=== PATIENT | male | born 1950 ===

== ENCOUNTER 2016-10-02 13:26 | Inpatient (IN) | payer MEDICAID ==
[2016-10-02 13:38] VITALS: BMI 32.1
[2016-10-02] MEDS ORDERED: Aspirin 325 mg EC Tablets PO STA (13:53)
--- NOTE | 2016-10-02 14:11 | C.PDOC ---
History Of Present Illness Patient is a 66 y/o male that presents to the emergency department for evaluation of worsening of chest pain, and shortness of breath. Patient states he is scheduled for echocardiogram and nuclear [place] [facility] Patient states that he was seen by PMD when his symptoms began, and states symptoms have been gradually worsening since September 23. Notes that pain is worse with exertion, and is short of breath when laying down as well. Denies chest pain in supine position. Otherwise, denies any palpitations, cough, abdominal pain, headache, fever, or any other associated symptoms at this time. Time Seen by Provider: 10/02/16 13:46 Chief Complaint (Nursing): Chest Pain History Per: Patient History/Exam Limitations: no limitations Onset/Duration Of Symptoms: Days Current Symptoms Are (Timing): Still Present Quality: "Pain" Associated Symptoms: denies: Nausea, Dyspnea, Diaphoresis, Syncope Modifying Factors: None Exacerbating Factors: Exertion Recent travel outside of the [place]: No Additional History Per: Patient Past Medical History Reviewed: Historical Data, Nursing Documentation, Vital Signs Vital Signs: Last Vital Signs Temp 96.6 F L 10/02/16 13:49 Pulse 79 10/02/16 13:49 Resp 17 10/02/16 13:49 BP 176/89 H 10/02/16 13:49 Pulse Ox 96 10/02/16 14:54 - Medical History PMH: Cardia Arrhythmia, Diabetes, HTN, Hypercholesterolemia Family History: States: Unknown Family Hx - Social History Hx Tobacco Use: No Hx Alcohol Use: Yes Hx Substance Use: No - Immunization History Hx Tetanus Toxoid Vaccination: No Hx Influenza Vaccination: Yes Hx Pneumococcal Vaccination: (not sure) Review Of Systems Except As Marked, All Systems Reviewed And Found Negative. Constitutional: Negative for: Fever, Chills Cardiovascular: Positive for: Chest Pain. Negative for: Palpitations, Edema, Light Headedness Respiratory: Positive for: Shortness of Breath. Negative for: Cough, Hemoptysis , Sputum, Wheezing Gastrointestinal: Negative for: Nausea, Vomiting, Abdominal Pain Neurological: Negative for: Weakness, Numbness, Headache, Dizziness Physical Exam - Physical Exam Appears: Non-toxic, No Acute Distress Skin: Normal Color, Warm, Dry Head: Atraumatic, Normacephalic Eye(s): bilateral: Normal Inspection, EOMI Neck: Normal ROM, Supple Chest: Symmetrical, No Tenderness Cardiovascular: Rhythm Regular, No Murmur Respiratory: Normal Breath Sounds, No Rales, No Rhonchi, No Wheezing Gastrointestinal/Abdominal: Soft, No Tenderness Extremity: Normal ROM, No Pedal Edema, Capillary Refill (< 2 sec.), No Swelling Neurological/Psych: Oriented x3, Normal Speech, Normal Cognition ED Course And Treatment - Laboratory Results Result Diagrams: 10/02/16 14:10 10/02/16 14:10 Lab Interpretation: Abnormal (BNP 2940, Troponin normal) ECG: Interpreted By Me, Viewed By Me ECG Rhythm: Sinus Rhythm ECG Interpretation: No Acute Changes Interpretation Of ECG: LVH. Non-specific T wave changes, flattening laterally. Rate From EC (bpm) O2 Sat by Pulse Oximetry: 96 (on RA) Pulse Ox Interpretation: Normal - Radiology CXR: Interpreted by Me CXR Interpretation: Yes: Cardiomegaly, Other (CHF with left pleural effusion) Progress Note: Labs, EKG, CXR ordered and reviewed. Pt was given Aspirin in the ER. Reevaluation Time: 14:52 Reassessment Condition: Unchanged - Physician Consult Information Time Consulting Physician Contacted: 14:52 Physician Contacted: Rogerio Mercedes Jr. Outcome Of Conversation: Patient accepted for admission. Disposition - Disposition Disposition: HOSPITALIZED Disposition Time: 15:40 Condition: STABLE - POA Present On Arrival: None - Clinical Impression Clinical Impression: Congestive heart failure, Unstable angina - Scribe Statement The provider has reviewed the documentation as recorded by the Liss Person Provider Attestation: All medical record entries made by the Liss were at my direction and personally dictated by me. I have reviewed the chart and agree that the record accurately reflects my personal performance of the history, physical exam, medical decision making, and the department course for this patient. I have also personally directed, reviewed, and agree with the discharge instructions and disposition.
[2016-10-02 14:18] LABS: BASO # 0.1 K/uL (0.0-0.2); BASO % 1.1 % (0.0-2.0); EOS # 0.5 K/uL (0.0-0.7); EOS % 7.5 % (0.0-4.0); HEMATOCRIT 43.1 % (35.0-51.0); LYMPH # 1.7 K/uL (1.0-4.3); LYMPH % 24.9 % (20.0-40.0); MEAN CELL VOLUME 75.2 fL (80.0-94.0); MEAN CORPUSCULAR HEMOGLOBIN 23.9 pg (27.0-31.0); MEAN CORPUSCULAR HGB CONC 31.8 g/dL (33.0-37.0); MEAN PLATELET VOLUME 7.9 fL (7.2-11.7); MONO # 0.5 K/uL (0.0-0.8); MONO % 7.2 % (0.0-10.0); NRBC % 0.1 % (0.0-2.0); RED CELL DISTRIBUTION WIDTH 14.5 % (11.5-14.5); WHITE BLOOD COUNT 6.9 K/uL (4.8-10.8)
[2016-10-02 14:25] LABS: CHLORIDE 99 mmol/L (98-107)
[2016-10-02 14:26] LABS: SODIUM 138 mmol/L (132-148)
[2016-10-02 14:28] LABS: BILIRUBIN,TOTAL 0.7 mg/dL (0.2-1.3); CARBON DIOXIDE 27 mmol/L (22-30); GFR AFRICAN-AMERICAN > 60
[2016-10-02 14:29] LABS: ALB/GLOB RATIO 1.4 (1.0-2.1); ALKALINE PHOSPHATASE 64 U/L (38-126); ALT/SGPT 23 U/L (21-72); AST/SGOT 26 U/L (17-59); BLOOD UREA NITROGEN 21 mg/dL (9-20); CALCIUM 8.8 mg/dl (8.6-10.4); GLUCOSE,RANDOM 211 mg/dL (75-110); TOTAL PROTEIN 6.4 g/dL (6.3-8.3)
--- NOTE | 2016-10-02 15:44 | CP.PCM.HP ---
History of Present Illness - History of Present Illness History of Present Illness: Medicine Note for Dr. Mercedes CC: SOB HPI: 66M with PMHx HTN, DM, HLD, and CHF presents to the ED for SOB x 2 days. Patient reports he normally sleeps on two pillows but the past two nights he has had to sleep sitting up. He reports feeling fatigued when ambulating. Patient has followed up with a Dovet[employer] Dr. Lin, who gave him a prescription for ECHO and Nuclear Stress test. Patient also have right sided flank pain for the past month. The pain is sharp in nature and intermediate. Denied any associated fevers, abdominal or pelvicm pain, hematuria, or dysuria. Patient currently denies any chest pain, but has some SOB and chest tightness intermittently. Denied fever, chills, headache, chest pain, abdominal pain, n/v/ d/c, or urinary symptoms. PMHx: HTN, DM, HLD, and CHF PSHx: Right renal stone removal Meds: As per JUN All: NKDA SHx: Denied tobacco or illicit drug use. Admitted to socially drinking 1-2 beers on special occasions FHx: Unremarkable Present on Admission - Present on Admission Any Indicators Present on Admission: No Past Patient History - Past Social History Smoking Status: Never Smoked - CARDIAC Hx Cardia Arrhythmia: Yes Hx Hypercholesterolemia: Yes Hx Hypertension: Yes - ENDOCRINE/METABOLIC Hx Diabetes Mellitus Type 2: Yes - PSYCHIATRIC Hx Substance Use: No - SURGICAL HISTORY Hx Surgeries: Yes Other/Comment: kidney stone with surgery - ANESTHESIA Hx Anesthesia: Yes Hx Anesthesia Reactions: No Hx Malignant Hyperthermia: No Meds Allergies/Adverse Reactions: Allergies Allergy/AdvReac Type Severity Reaction Status Date / Time No Known Allergies Allergy Verified 10/02/16 13:52 Physical Exam - Constitutional Appears: No Acute Distress - Head Exam Head Exam: NORMAL INSPECTION, NORMOCEPHALIC - Eye Exam Eye Exam: Normal appearance - ENT Exam ENT Exam: Mucous Membranes Moist - Neck Exam Additional comments: NO JVD - Respiratory Exam Respiratory Exam: Rales - Cardiovascular Exam Cardiovascular Exam: REGULAR RHYTHM, RRR, +S1, +S2 Additional comments: No S3 appreciated - GI/Abdominal Exam GI & Abdominal Exam: Normal Bowel Sounds, Soft. absent: Distended, Tenderness - Extremities Exam Extremities exam: Positive for: normal inspection, pedal pulses present. Negative for: pedal edema, tenderness - Back Exam Back exam: CVA tenderness (R) - Neurological Exam Neurological exam: Alert, Oriented x3 - Skin Skin Exam: Dry, Intact, Normal Color, Warm Results - Vital Signs Recent Vital Signs: Last Vital Signs Temp 96.6 F L 10/02/16 13:49 Pulse 79 10/02/16 13:49 Resp 17 10/02/16 13:49 BP 176/89 H 10/02/16 13:49 Pulse Ox 96 10/02/16 15:41 - Labs Result Diagrams: 10/02/16 14:10 10/02/16 14:10 Labs: Laboratory Results - last 24 hr 10/02/16 10/02/16 14:10 14:10 WBC 6.9 RBC 5.73 Hgb 13.7 Hct 43.1 MCV 75.2 L MCH 23.9 L MCHC 31.8 L RDW 14.5 Plt Count 277 MPV 7.9 Neut % (Auto) 59.3 Lymph % (Auto) 24.9 Knox % (Auto) 7.2 Eos % (Auto) 7.5 H Baso % (Auto) 1.1 Neut # 4.1 Lymph # 1.7 Knox # 0.5 Eos # 0.5 Baso # 0.1 Sodium 138 Potassium 4.0 Chloride 99 Carbon Dioxide 27 Anion Gap 15 BUN 21 H Creatinine 0.8 Est GFR ( Amer) > 60 Est GFR (Non-Af Amer) > 60 Random Glucose 211 H Calcium 8.8 Total Bilirubin 0.7 AST 26 ALT 23 Alkaline Phosphatase 64 Troponin I 0.0260 NT-Pro-B Natriuret Pep 2940 H Total Protein 6.4 Albumin 3.7 Globulin 2.7 Albumin/Globulin Ratio 1.4 Assessment & Plan - Assessment and Plan (Free Text) Assessment: 66M with PMHx HTN, DM, HLD, and CHF presents to the ED for SOB x 2 days. Plan: CHF Exacerbation * Rales audible on physical exam * BNP 2940 * CXR: Cardiomegaly, left pleural effusion --> pending official read * Initial AMY: negative, follow up AMY x2 * EKG: NSR @ 76 BPM. LVH. Non-specific T wave changes, flattening laterally. * F/U ECHO Right Flank Pain * + CVA right * Hx of renal stones * F/U UA * CT AB&P without contrast --> pending results HTN * Restarted home medications: Norvasc 5mg PO daily, Cozaar 50mg PO daily ( patient takes a combo pill losartan/norvasc not on formulary), Metoprolol XL 50mg PO daily * Monitor DM * Accuchecks * ISS-medium * F/U HgA1C Hx HLD * Crestor 10mg PO QHS * F/U lipid panel Prophylactic Measures * GI PPX: Protonix 40mg PO daily * DVT PPX: Heparin 5000u SC Q12, SCDs * Heart Healthy Diet w/ fluid restriction * Daily Weights DW Dr. Mercedes, Pepper HUTCHINS, PGY-1
[2016-10-02 17:01] VITALS: RESP 20
[2016-10-02 17:05] LABS: RBC URINE 2 /hpf (0-3); URINE BILIRUBIN NEGATIVE (NEGATIVE); URINE BLOOD NEGATIVE (NEGATIVE); URINE COLOR Straw (YELLOW); URINE GLUCOSE (UA) NORMAL (Normal); URINE KETONE NEGATIVE (NEGATIVE); URINE LEUKOCYTE ESTERASE NEG Leu/uL (Negative); URINE PROTEIN 2+ mg/dL (NEGATIVE); URINE UROBILINOGEN NORMAL mg/dL (0.2-1.0); WBC URINE < 1 /hpf (0-5)
[2016-10-02] MEDS: (Novolin R) Insulin Human Regular 100 units/ml vial SC SCH ×2 (17:30→22:25)
--- NOTE | 2016-10-02 18:10 | CT ---
EXAM: CT Abdomen and Pelvis Without Intravenous Contrast CLINICAL HISTORY: 66 years old, male; Pain; Abdominal pain; Generalized; Additional info: Right flank pain, HX of renal stones TECHNIQUE: Axial computed tomography images of the abdomen and pelvis without intravenous contrast. This CT exam was performed using one or more of the following dose reduction techniques: automated exposure control, adjustment of the mA and/or kV according to patient size, and/or use of iterative reconstruction technique. Coronal and sagittal reformatted images were created and reviewed. EXAM DATE/TIME: 10/02/2016 4:19 PM COMPARISON: No relevant prior studies available. FINDINGS: LOWER THORAX: Bilateral pleural effusions, small to moderate on the right and small on the left. Findings suspicious for mild pulmonary vascular congestion-there is bilateral smooth interlobular septal thickening. Indeterminate 16 x 7 mm nodular density in the right lung base. Recommend follow-up CT at around 3, 9 and 24 months, dynamic contrast-enhanced CT, PET, and/or biopsy for patients with low or high risk of malignancy. ABDOMEN: LIVER: No acute abnormality of the liver identified. GALLBLADDER AND BILE DUCTS: No CT evidence of acute cholecystitis. No evidence of significant biliary ductal dilatation. PANCREAS: No CT evidence of acute pancreatitis. SPLEEN: No acute abnormality of the spleen identified. ADRENALS: No acute abnormality of the adrenal glands identified. KIDNEYS AND URETERS: Large, staghorn type calculus in the right kidney, located in the lower pole collecting system, measuring up to 2.3 cm in size. This does not appear to be causing significant obstruction. Multiple additional nonobstructing stones in the lower pole of the right kidney. Scarring involving the lower pole of right kidney. No obstructing ureteral stones seen. No evidence of hydroureteronephrosis. STOMACH AND BOWEL: No acute abnormality of the stomach or duodenum identified. No evidence of small bowel obstruction. No acute abnormality of the colon identified. APPENDIX: Appendix is seen, and is within normal limits in appearance. PELVIS: BLADDER: No acute abnormality of the bladder identified. REPRODUCTIVE: No acute abnormality of the reproductive organs is seen. ABDOMEN and PELVIS: INTRAPERITONEAL SPACE: No evidence of free intraperitoneal air or fluid. BONES/JOINTS: No acute fractures or other acute bony abnormality noted. SOFT TISSUES: No acute abnormality of the visualized soft tissues is seen. VASCULATURE: Atherosclerotic calcification. No evidence of abdominal aortic aneurysm. LYMPH NODES: No evidence of diffuse lymphadenopathy. IMPRESSION: - Bilateral pleural effusions, larger on the right, and findings suspicious for mild pulmonary vascular congestion. The - Otherwise, no evidence of significant acute process on this unenhanced exam. - Large staghorn type calculus in the lower pole the right kidney. No evidence of obstructive nephrolithiasis. - Indeterminate 16 x 7 mm nodular density in the right lung base. See recommendations above. - See above for remaining findings.
--- NOTE | 2016-10-02 18:44 | RAD ---
PROCEDURE: CHEST RADIOGRAPH, 1 VIEW HISTORY: chest pain COMPARISON: None available. FINDINGS: LUNGS: Poor inspiration with low lung volumes, crowded bronchovascular markings and mild bibasilar atelectasis and or infiltrates. Questionable small bilateral effusions left larger than right PLEURA: No pneumothorax or pleural fluid seen. CARDIOVASCULAR: Heart appears enlarged OSSEOUS STRUCTURES: Degenerative changes both shoulder girdles. . VISUALIZED UPPER ABDOMEN: Normal. OTHER FINDINGS: None. IMPRESSION: Poor inspiration with low lung volumes, crowded bronchovascular markings and mild bibasilar atelectasis and or infiltrates. Questionable small bilateral effusions left larger than right
[2016-10-03] MEDS: (Novolin R) Insulin Human Regular 100 units/ml vial SC SCH ×2 (07:30→12:00)
[2016-10-03 07:59] LABS: ALB/GLOB RATIO 1.2 (1.0-2.1); ALKALINE PHOSPHATASE 71 U/L (38-126); ALT/SGPT 27 U/L (21-72); AST/SGOT 17 U/L (17-59); BILIRUBIN,TOTAL 0.8 mg/dL (0.2-1.3); BLOOD UREA NITROGEN 26 mg/dL (9-20); CALCIUM 8.6 mg/dl (8.6-10.4); CARBON DIOXIDE 29 mmol/L (22-30); CHLORIDE 100 mmol/L (98-107); CHOLESTEROL 156 mg/dL (0-199); GFR AFRICAN-AMERICAN > 60; GLUCOSE,RANDOM 146 mg/dL (75-110); MAGNESIUM 1.9 mg/dL (1.6-2.3); POTASSIUM 4.1 mmol/L (3.6-5.2); SODIUM 138 mmol/L (132-148); TOTAL PROTEIN 6.4 g/dL (6.3-8.3)
[2016-10-03 08:03] LABS: BASO % 0.7 % (0.0-2.0); EOS # 0.6 K/uL (0.0-0.7); EOS % 10.2 % (0.0-4.0); HEMATOCRIT 44.4 % (35.0-51.0); MEAN CELL VOLUME 74.6 fL (80.0-94.0); MEAN CORPUSCULAR HEMOGLOBIN 23.6 pg (27.0-31.0); MEAN CORPUSCULAR HGB CONC 31.7 g/dL (33.0-37.0); MEAN PLATELET VOLUME 8.4 fL (7.2-11.7); MONO # 0.6 K/uL (0.0-0.8); MONO % 8.7 % (0.0-10.0); RED CELL DISTRIBUTION WIDTH 14.6 % (11.5-14.5); WHITE BLOOD COUNT 6.4 K/uL (4.8-10.8)
--- NOTE | 2016-10-03 08:05 | CP.PCM.PN ---
Subjective - Date & Time of Evaluation Date of Evaluation: 10/03/16 Time of Evaluation: 07:00 - Subjective Subjective: Medicine Note for Dr. Mercedes, Patient was seen and examined at bedside. Reports his breathing has improved since admission. Continues to have right sided flank pain, pain relieved with medications. Ambulating and tolerating diet well. Denied fever, chills, headache , chest pain, SOB, abdominal pain, n/v/d/c, or urinary symptoms. Objective - Vital Signs/Intake and Output Vital Signs (last 24 hours): Temp Pulse Resp BP Pulse Ox 97.8 F 79 20 180/89 H 95 10/03/16 05:03 10/03/16 05:03 10/03/16 05:03 10/03/16 05:03 10/03/16 05:03 - Medications Medications: Current Medications Acetaminophen (Tylenol 325mg Tab) 650 mg PO Q6 PRN PRN Reason: Pain, Mild (1-3) Amlodipine Besylate (Norvasc) 5 mg PO DAILY [facility] Aspirin (Aspirin Chewable) 81 mg PO DAILY [facility] Furosemide (Lasix) 40 mg IVP BID [facility] Heparin Sodium (Porcine) (Heparin) 5,000 units SC Q12 [facility] Last Admin: 10/02/16 22:25 Dose: 5,000 units Insulin Human Regular (Novolin R) 0 unit SC ACHS RAVI PRN Reason: Protocol Last Admin: 10/02/16 22:25 Dose: Not Given Ketorolac Tromethamine (Toradol) 30 mg IVP Q6 PRN PRN Reason: Pain, moderate (4-7) Losartan Potassium (Cozaar) 50 mg PO DAILY [facility] Metoprolol Succinate (Toprol Xl) 50 mg PO DAILY [facility] Pantoprazole Sodium (Protonix Ec Tab) 40 mg PO DAILY [facility] Rosuvastatin Calcium (Crestor) 10 mg PO HS [facility] Last Admin: 10/02/16 22:24 Dose: 10 mg - Labs Labs: 10/03/16 07:26 - Constitutional Appears: No Acute Distress - Head Exam Head Exam: NORMAL INSPECTION, NORMOCEPHALIC - Respiratory Exam Respiratory Exam: Rales - Cardiovascular Exam Cardiovascular Exam: REGULAR RHYTHM, RRR, +S1, +S2 - GI/Abdominal Exam GI & Abdominal Exam: Soft, Normal Bowel Sounds. absent: Distended, Tenderness - Back Exam Back Exam: CVA tenderness (R) - Neurological Exam Neurological Exam: Alert, Awake, Oriented x3 - Skin Skin Exam: Dry, Intact, Normal Color, Warm Assessment and Plan - Assessment and Plan (Free Text) Assessment: 66M with PMHx HTN, DM, HLD, and CHF presents to the ED for SOB x 2 days. Plan: CHF Exacerbation * Rales audible on physical exam * BNP 2940 * CXR: Cardiomegaly, left pleural effusion --> pending official read * Initial AMY: negative, 2nd AMY negative, 3rd AMY - * EKG: NSR @ 76 BPM. LVH. Non-specific T wave changes, flattening laterally. * F/U ECHO Right Flank Pain * + CVA right * Hx of renal stones * UA - +2 protein * CT AB&P 10/02/16: - Bilateral pleural effusions, larger on the right, and findings suspicious for mild pulmonary vascular congestion. Large, staghorn type calculus in the right kidney, located in the lower pole collecting system , measuring up to 2.3 cm in size. This does not appear to be causing significant obstruction. Multiple additional nonobstructing stones in the lower pole of the right kidney. Scarring involving the lower pole of right kidney. No obstructing ureteral stones seen. No evidence of hydroureteronephrosis. Incidental Lung Nodule on CT Scan * CT AB&P 10/02/16: Indeterminate 16 x 7 mm nodular density in the right lung base. Recommend follow-up CT at around 3, 9 and 24 months, dynamic contrast- enhanced CT, PET, and/or biopsy for patients with low or high risk of malignancy. HTN * Restarted home medications: Norvasc 5mg PO daily, Cozaar 50mg PO daily ( patient takes a combo pill losartan/norvasc not on formulary), Metoprolol XL 50mg PO daily * Monitor DM * Accuchecks * ISS-medium * HgA1C: 8.0 Hx HLD * Crestor 10mg PO QHS * F/U lipid panel Prophylactic Measures * GI PPX: Protonix 40mg PO daily * DVT PPX: Heparin 5000u SC Q12, SCDs * Heart Healthy Diet w/ fluid restriction * Daily Weights * Strict Ix & Os DW Pepper Riggs DO, PGY-1
[2016-10-03] MEDS ORDERED: Metoprolol Succinate 50 mg XL Tab PO SCH (10:00)
[2016-10-03] MEDS ORDERED: Pantoprazole 40 mg EC Tab PO SCH (10:00)
--- NOTE | 2016-10-03 13:24 | CP.PCM.DIS ---
Provider - Provider Date of Admission: 10/02/16 15:41 Attending physician: Rogerio Mercedes Jr, MD Time Spent in preparation of Discharge (in minutes): 35 Hospital Course - Lab Results Lab Results: Most Recent Lab Values WBC 6.4 K/uL (4.8-10.8) 10/03/16 07:26 RBC 5.95 Mil/uL (4.40-5.90) H 10/03/16 07:26 Hgb 14.1 g/dL (12.0-18.0) 10/03/16 07:26 Hct 44.4 % (35.0-51.0) 10/03/16 07:26 MCV 74.6 fL (80.0-94.0) L 10/03/16 07:26 MCH 23.6 pg (27.0-31.0) L 10/03/16 07:26 MCHC 31.7 g/dL (33.0-37.0) L 10/03/16 07:26 RDW 14.6 % (11.5-14.5) H 10/03/16 07:26 Plt Count 287 K/uL (130-400) 10/03/16 07:26 MPV 8.4 fL (7.2-11.7) 10/03/16 07:26 Neut % (Auto) 49.4 % (50.0-75.0) L 10/03/16 07:26 Lymph % (Auto) 31.0 % (20.0-40.0) 10/03/16 07:26 Lyman % (Auto) 8.7 % (0.0-10.0) 10/03/16 07:26 Eos % (Auto) 10.2 % (0.0-4.0) H 10/03/16 07:26 Baso % (Auto) 0.7 % (0.0-2.0) 10/03/16 07:26 Neut # 3.1 K/uL (1.8-7.0) 10/03/16 07:26 Lymph # 2.0 K/uL (1.0-4.3) 10/03/16 07:26 Lyman # 0.6 K/uL (0.0-0.8) 10/03/16 07:26 Eos # 0.6 K/uL (0.0-0.7) 10/03/16 07:26 Baso # 0.0 K/uL (0.0-0.2) 10/03/16 07:26 Sodium 138 mmol/L (132-148) 10/03/16 07:26 Potassium 4.1 mmol/L (3.6-5.2) 10/03/16 07:26 Chloride 100 mmol/L (98-107) 10/03/16 07:26 Carbon Dioxide 29 mmol/L (22-30) 10/03/16 07:26 Anion Gap 13 (10-20) 10/03/16 07:26 BUN 26 mg/dL (9-20) H 10/03/16 07:26 Creatinine 1.0 MG/DL (0.8-1.5) 10/03/16 07:26 Est GFR ( Amer) > 60 10/03/16 07:26 Est GFR (Non-Af Amer) > 60 10/03/16 07:26 POC Glucose (mg/dL) 169 mg/dL (65-110) H 10/03/16 11:28 Random Glucose 146 mg/dL (75-110) H 10/03/16 07:26 Hemoglobin A1c 8.0 % (4.2-6.5) H 10/02/16 16:17 Calcium 8.6 mg/dl (8.6-10.4) 10/03/16 07:26 Phosphorus 4.0 mg/dL (2.5-4.5) 10/03/16 07:26 Magnesium 1.9 mg/dL (1.6-2.3) 10/03/16 07:26 Total Bilirubin 0.8 mg/dL (0.2-1.3) 10/03/16 07:26 AST 17 U/L (17-59) D 10/03/16 07:26 ALT 27 U/L (21-72) 10/03/16 07:26 Alkaline Phosphatase 71 U/L (38-126) 10/03/16 07:26 Total Creatine Kinase 48 U/L (55-170) L 10/03/16 07:26 CK-MB (Mass) 1.15 ng/mL (0.0-3.38) 10/03/16 07:26 Troponin I 0.0260 ng/mL (0.00-0.120) 10/02/16 14:10 Troponin I, Quant 0.0290 ng/mL (0.00-0.120) 10/03/16 07:26 NT-Pro-B Natriuret Pep 2940 pg/mL (0-900) H 10/02/16 14:10 Total Protein 6.4 g/dL (6.3-8.3) 10/03/16 07:26 Albumin 3.5 g/dL (3.5-5.0) 10/03/16 07:26 Globulin 2.9 gm/dL (2.2-3.9) 10/03/16 07:26 Albumin/Globulin Ratio 1.2 (1.0-2.1) 10/03/16 07:26 Triglycerides 129 mg/dL (0-149) D 10/03/16 07:26 Cholesterol 156 mg/dL (0-199) 10/03/16 07:26 LDL Cholesterol Direct 91 mg/dL (0-129) 10/03/16 07:26 HDL Cholesterol 35 mg/dL (30-70) 10/03/16 07:26 TSH 3rd Generation 1.03 mIU/L (0.46-4.68) 10/02/16 12:07 Urine Color Straw (YELLOW) 10/02/16 16:59 Urine Clarity Clear (Clear) 10/02/16 16:59 Urine pH 7.0 (5.0-8.0) 10/02/16 16:59 Ur Specific [place] 1.010 (1.003-1.030) 10/02/16 16:59 Urine Protein 2+ mg/dL (NEGATIVE) H 10/02/16 16:59 Urine Glucose (UA) Normal mg/dL (Normal) 10/02/16 16:59 Urine Ketones Negative mg/dL (NEGATIVE) 10/02/16 16:59 Urine Blood Negative (NEGATIVE) 10/02/16 16:59 Urine Nitrate Negative (NEGATIVE) 10/02/16 16:59 Urine Bilirubin Negative (NEGATIVE) 10/02/16 16:59 Urine Urobilinogen Normal mg/dL (0.2-1.0) 10/02/16 16:59 Ur Leukocyte Esterase Neg Delgado/uL (Negative) 10/02/16 16:59 Urine WBC (Auto) < 1 /hpf (0-5) 10/02/16 16:59 Urine RBC (Auto) 2 /hpf (0-3) 10/02/16 16:59 Ur Squamous Epith Cells < 1 /hpf (0-5) 10/02/16 16:59 - Hospital Course Hospital Course: Upon Admission: CC: SOB HPI: 66M with PMHx HTN, DM, HLD, and CHF presents to the ED for SOB x 2 days. Patient reports he normally sleeps on two pillows but the past two nights he has had to sleep sitting up. He reports feeling fatigued when ambulating. Patient has followed up with a Bl[employer] Contract [employer]er Dr. Lin, who gave him a prescription for ECHO and Nuclear Stress test. Patient also have right sided flank pain for the past month. The pain is sharp in nature and intermediate. Denied any associated fevers, abdominal or pelvicm pain, hematuria, or dysuria. Patient currently denies any chest pain, but has some SOB and chest tightness intermittently. Denied fever, chills, headache, chest pain, abdominal pain, n/v/ d/c, or urinary symptoms. PMHx: HTN, DM, HLD, and CHF PSHx: Right renal stone removal Meds: As per JUN All: NKDA SHx: Denied tobacco or illicit drug use. Admitted to socially drinking 1-2 beers on special occasions FHx: Unremarkable Throughout Hospital Course: Patient was admitted for new onset CHF. Patient was started on Lasix to diuresis the patient. CXR: Cardiomegaly, left pleural effusion, AMY x 3 negative, EKG: NSR @ 76 BPM. LVH. Non-specific T wave changes, flattening laterally. Patient was resumed on home medications for HTN, DM, and HLD. Patient also had right sided flank pain, CT AB&P 10/02/16: - Bilateral pleural effusions, larger on the right, and findings suspicious for mild pulmonary vascular congestion. Large, staghorn type calculus in the right kidney, located in the lower pole collecting system, measuring up to 2.3 cm in size. This does not appear to be causing significant obstruction. Multiple additional nonobstructing stones in the lower pole of the right kidney. Scarring involving the lower pole of right kidney. No obstructing ureteral stones seen. No evidence of hydroureteronephrosis. Indeterminate 16 x 7 mm nodular density in the right lung base. Recommend follow-up CT at around 3, 9 and 24 months, dynamic contrast-enhanced CT, PET, and/or biopsy for patients with low or high risk of malignancy. This is a brief summary of the patient's hospital course, please refer to EMR for full record. Discharge Exam - Head Exam Head Exam: NORMAL INSPECTION, NORMOCEPHALIC - Eye Exam Eye Exam: Normal appearance - ENT Exam ENT Exam: Mucous Membranes Moist - Respiratory Exam Respiratory Exam: Clear to PA & Lateral, NORMAL BREATHING PATTERN. absent: Rales, Wheezes - GI/Abdominal Exam GI & Abdominal Exam: Normal Bowel Sounds, Soft. absent: Distended, Tenderness - Extremities Exam Extremities exam: normal inspection, pedal pulses present - Neurological Exam Neurological exam: Alert, Oriented x3 - Skin Skin Exam: Dry, Intact, Normal Color, Warm Discharge Plan - Discharge Medications Prescriptions: amLODIPine [Norvasc] 5 mg PO DAILY #30 tab Furosemide [Lasix] 40 mg PO DAILY #30 tablet Lisinopril [Zestril] 10 mg PO DAILY #30 tab - Follow Up Plan Condition: STABLE Disposition: HOME/ ROUTINE Additional Instructions: Patient is to take the following medications daily: Aspirin 81mg by mouth daily furosemide (lasix) 40mg by mouth daily amlodipine 5mg by mouth daily lisinopril 10mg by mouth daily Metoprolol XL 50mg by mouth daily Metformin 1000mg by mouth twice a day Glimepiride 4mg by mouth daily Pravachol 20mg by mouth daily Patient is to follow up with his eligibility analyst Dr. Lin. He was given a prescription for ECHO and Nuclear Stress Test, he should have those 2 examinations done. Patient is to also have a repeat CT scan of his chest in 3 months for a lung nodule that was incidentally found on CT scan during this hospital course. Patient is to follow up with a Urologist, to evaluate him for his staghorn calculi in his right kidney. Patient instructed to follow up with his PMD within 1 week. Patient encouraged to return to the ED if his symptoms worsen or return. El paciente debe elva los siguientes medicamentos diariamente: Aspirina 81mg por va oral todos los thomas Furosemida (lasix) 40mg por va oral todos los thomas Amlodipine 5mg por va oral todos los thomas Lisinopril 10 mg por va oral todos los thomas Metoprolol XL 50mg por va oral todos los thomas Metformina 1000mg por va oral dos veces al da Glimepiride 4mg por va oral todos los thomas Pravachol 20mg por va oral todos los thomas El paciente debe seguir con tatum cardilogo Dr. Lin. Se le mehdi chris receta para ECHO y Prueba de Estrs Nuclear, l debe tener esos 2 exmenes hechos. Paciente es tambin tener chris repeticin de la TC de tatum pecho en 3 meses para un ndulo pulmonar que se encontr incidentalmente en la TC shruthi oren [facility] hospital. El paciente debe hacer un seguimiento con un urlogo, para evaluarlo por fernando c lculos de staghorn en tatum rin derecho. Paciente instruido a seguir con tatum PMD dentro de 1 semana. El paciente es alentado a regresar a la DE si fernando sntomas empeoran o regresan. Referrals: Mary Rodríguez MD [Staff Provider] -
[2016-10-03 15:56] VITALS: BP 168/81; PULSE 70; TEMP 97.8; O2SAT 95
--- NOTE | 2016-10-04 13:11 | CARD ---
APPROVED REPORT EKG Measurement Heart [id number] <Conclusion> Normal sinus rhythm Minimal voltage criteria for LVH, may be normal variant Nonspecific T wave abnormality Abnormal ECG
--- NOTE | 2016-10-05 11:07 | PCM.HF ---
Heart Failure Core Measure - Heart Failure Left Ventricular Function to be assessed after discharge: Yes KRYSTYNA Inhibitor Prescribed: Yes Beta-Jelena Prescribed: Metoprolol Succinate Angiotensin II Receptor Jelena Prescribed: No Contraindication/Reason for not providing: KRYSTYNA- I prescribed AnticoagulationTherapy for Atrial Fibrillation/Atrialflutter: No Contraindication/Reason for not providing: No hx of A-fib Aldosterone Antagonist Prescribed: No Contraindication/Reason for not providing: Pt on Lasix Hydralazine Nitrate Prescribed: No Contraindication/Reason for not providing: n/a Implantable Cardioverter Defibrillator Therapy: No Contraindication/Reason for not providing: n/a Cardiac Resynchronization Therapy Prescribed: No Contraindication/Reason for not providing: n/a - Follow up Will be discharged to: Home Follow Up Date (must be within 7 days from discharge): 10/12/16 (Patient is to follow up with his ebd teacher. ECHO and nuclear stress test to be performed as outpatient. ) Follow Up Time: 09:00
== END 2016-10-03 15:30 | disposition home or self-care (01) | DRG 127 ==
LOC: C.ER 13:26 → C.9E 15:41 → C.6T 16:37
PROVIDERS: ADMIT Internal Medicine; ATTEND Internal Medicine
DX: I11.0 Hypertensive heart disease with heart failure (principal); I20.0 Unstable angina; E11.9 Type 2 diabetes mellitus without complications; I50.9 Heart failure, unspecified; E78.00 Pure hypercholesterolemia, unspecified; E78.5 Hyperlipidemia, unspecified; N20.0 Calculus of kidney; Z87.442 Personal history of urinary calculi; R91.1 Solitary pulmonary nodule

== ENCOUNTER 2017-09-11 06:28 | Inpatient (IN) | payer MEDICAID ==
[2017-09-11 06:29] VITALS: BMI 32.1
--- NOTE | 2017-09-11 06:51 | C.PDOC ---
History Of Present Illness 67 year old male presents to the ER with a complaint of SOB for the past 4-5 days that worsens with walking up stairs. Denies chest pain or fever. Chief Complaint (Nursing): Shortness Of Breath History Per: Patient History/Exam Limitations: no limitations Onset/Duration Of Symptoms: Days Current Symptoms Are (Timing): Still Present Initiating Event: Other (Not known) Exacerbating Factor(s): Exertion Current Respiratory Medications: None Associated Symptoms: Other (SOB, SOB when walking up stairs). denies: Fever, Chest Pain Recent travel outside of the [place]: No Past Medical History Reviewed: Historical Data, Nursing Documentation, Vital Signs Vital Signs: Last Vital Signs Temp 98.2 F 09/11/17 06:41 Pulse 68 09/11/17 06:41 Resp 19 09/11/17 06:41 BP 168/82 H 09/11/17 06:41 Pulse Ox 95 09/11/17 06:58 - Medical History PMH: Cardia Arrhythmia, Diabetes, HTN, Hypercholesterolemia Family History: States: Unknown Family Hx - Social History Hx Tobacco Use: No Hx Alcohol Use: Yes Hx Substance Use: No - Immunization History Hx Tetanus Toxoid Vaccination: No Hx Influenza Vaccination: Yes Hx Pneumococcal Vaccination: (not sure) Review Of Systems Constitutional: Negative for: Fever, Chills Cardiovascular: Negative for: Chest Pain Respiratory: Positive for: Shortness of Breath, SOB with Excertion Gastrointestinal: Negative for: Nausea, Vomiting Physical Exam - Physical Exam Appears: Non-toxic, No Acute Distress Skin: Normal Color, Warm, Dry Head: Atraumatic, Normacephalic Eye(s): bilateral: Normal Inspection Oral Mucosa: Moist Chest: Symmetrical, No Tenderness Cardiovascular: Rhythm Regular Respiratory: Rales (Bilateral lower), No Rhonchi, No Wheezing Gastrointestinal/Abdominal: Soft, No Tenderness Extremity: Pedal Edema Neurological/Psych: Oriented x3, Normal Speech ED Course And Treatment O2 Sat by Pulse Oximetry: 95 (Room air) Pulse Ox Interpretation: Normal Progress Note: EKG, blood work, and CXR ordered. Disposition - Disposition Referrals: Rachana Lin MD [Primary Care Provider] - Disposition Time: 06:57 Condition: STABLE Forms: RollCall (roll.to) (Slovak) - POA Present On Arrival: None - Clinical Impression Clinical Impression: Dyspnea, Congestive heart failure - Scribe Statement The provider has reviewed the documentation as recorded by the Scribe Trav Yost All medical record entries made by the Liss were at my direction and personally dictated by me. I have reviewed the chart and agree that the record accurately reflects my personal performance of the history, physical exam, medical decision making, and the department course for this patient. I have also personally directed, reviewed, and agree with the discharge instructions and disposition.
--- NOTE | 2017-09-11 06:55 | C.PDOC ---
Chief Complaint (Nursing): Shortness Of Breath Past Medical History Vital Signs: Last Vital Signs Temp 98.2 F 09/11/17 06:41 Pulse 68 09/11/17 06:41 Resp 19 09/11/17 06:41 BP 168/82 H 09/11/17 06:41 Pulse Ox 95 09/11/17 06:59 - Medical History PMH: Cardia Arrhythmia, Diabetes, HTN, Hypercholesterolemia Denies: Chronic Kidney Disease Family History: States: Unknown Family Hx - Social History Hx Tobacco Use: No Hx Alcohol Use: Yes Hx Substance Use: No - Immunization History Hx Tetanus Toxoid Vaccination: No Hx Influenza Vaccination: Yes Hx Pneumococcal Vaccination: (not sure) ED Course And Treatment ECG: Interpreted By Me, Viewed By Me ECG Rhythm: Sinus Rhythm ECG Interpretation: No Acute Changes Interpretation Of ECG: NSR, LVH by voltage criteria, ni acute changes. Rate From EC O2 Sat by Pulse Oximetry: 95 Pulse Ox Interpretation: Normal Disposition - Disposition Referrals: Rachana Lin MD [Primary Care Provider] - Disposition Time: 07:00 Condition: STABLE Forms: [employer] (Georgian) - Clinical Impression Clinical Impression: Dyspnea, Congestive heart failure
[2017-09-11 07:02] LABS: BASO # 0.1 K/uL (0.0-0.2); BASO % 0.8 % (0.0-2.0); EOS % 13.9 % (0.0-4.0); HEMOGLOBIN 14.1 g/dL (12.0-18.0); LYMPH # 1.9 K/uL (1.0-4.3); MEAN CELL VOLUME 73.7 fL (80.0-94.0); MEAN CORPUSCULAR HEMOGLOBIN 24.4 pg (27.0-31.0); MEAN CORPUSCULAR HGB CONC 33.1 g/dL (33.0-37.0); MEAN PLATELET VOLUME 7.7 fL (7.2-11.7); MONO # 0.6 K/uL (0.0-0.8); MONO % 8.6 % (0.0-10.0); NEUT # 3.4 K/uL (1.8-7.0); NEUT % 49.7 % (50.0-75.0); RBC 5.77 Mil/uL (4.40-5.90); RED CELL DISTRIBUTION WIDTH 15.5 % (11.5-14.5); WHITE BLOOD COUNT 6.9 K/uL (4.8-10.8)
[2017-09-11 07:15] LABS: ALB/GLOB RATIO 1.2 (1.0-2.1); ALBUMIN 3.6 g/dL (3.5-5.0); ALT/SGPT 13 U/L (21-72); AST/SGOT 21 U/L (17-59); BLOOD UREA NITROGEN 21 mg/dL (9-20); GFR AFRICAN-AMERICAN > 60; GFR NON-AFRICAN AMERICAN > 60
[2017-09-11 07:27] LABS: B-TYPE NATRIURETIC PEPTIDE 657 pg/mL (0-900)
[2017-09-11 07:37] LABS: D DIMER < 200 ng/mlDDU (0-243); PARTIAL THROMBOPLASTIN TIME 32 SECONDS (21-34); PROTHROMBIN TIME 10.6 SECONDS (9.7-12.2)
[2017-09-11] MEDS ORDERED: Glucagon Recombinant 1 mg Inj IM PRN (09:20)
[2017-09-11] MEDS ORDERED: Dextrose 50% SYRINGE Inj (50 ml) IV PRN (09:20)
[2017-09-11] MEDS ORDERED: Metoprolol Succinate 50 mg XL Tab PO SCH ×2 (10:00→11:12)
[2017-09-11] MEDS ORDERED: PRAVASTATIN SODIUM 20 MG PO SCH (10:00)
--- NOTE | 2017-09-11 10:13 | RAD ---
HISTORY: SOB COMPARISON: Portable chest 10/02/2016. TECHNIQUE: Chest PA and lateral FINDINGS: LUNGS: Cardiomegaly reiterated with mild pulmonary vascular congestion evident. Reticular markings appear somewhat increased and may reflect new CHF. PLEURA: No significant pleural effusion identified. No pneumothorax apparent. CARDIOVASCULAR: As above. OSSEOUS STRUCTURES: No significant abnormalities. VISUALIZED UPPER ABDOMEN: Normal. OTHER FINDINGS: None. IMPRESSION: Mild CHF suggested. No alveolitis.
[2017-09-11 10:14] LABS: HDL CHOLESTEROL 53 mg/dL (30-70)
[2017-09-11 10:24] LABS: LDL CHOLESTEROL 90 mg/dL (0-129)
[2017-09-11] MEDS ORDERED: Albuterol-Ipratrop 3 mg / 0.5 (3 ml) UD INH PRN (11:12)
[2017-09-11] MEDS ORDERED: (Novolin R) Insulin Human Regular 100 units/ml vial SC SCH (11:30)
--- NOTE | 2017-09-11 14:19 | CP.PCM.HP ---
<Alessio Lozano - Last Filed: 09/11/17 14:24> History of Present Illness - History of Present Illness History of Present Illness: This is a 67 yo male with past medical history of CHF, DM, HTN, HLD, presenting to ER with chief complaint of shortness of breath. Pt does not speak any austrian and is a poor historian. He is with his daughter who is able to provide some translation. Pt reports sob x 30 days, but says it started worsening over the past 1 night. Patient says it has never happened before although records indicate he was admitted for similar issue last year. Pt denies chest pain, palpitations, dizziness. Pt says the sob does not happen during exertion. It is only affecting him at rest. He takes several medications and is compliant with all of them. Pt denies cough, fevers, chills, vomiting, diarrhea. He does not use any pumps or inhalers. PMH: CHF (unclear whether reduced or preserved EF), HTN, DM, HLD PSH: Hernia sx? Allergies: NKDA FH: Denies Home meds: ASA, metoprolol succinate, metformin, amaryl, pravastatin, losartan Social hx: Denies smoking, but previously told Dr. Almanza he is a former smoker. Social drinker. Denies drug use. From [place]. Works as a cook. Present on Admission - Present on Admission Any Indicators Present on Admission: No History of DVT/PE: No History of Uncontrolled Diabetes: No Urinary Catheter: No Decubitus Ulcer Present: No Review of Systems - Review of Systems All systems: reviewed and no additional remarkable complaints except Review of Systems: negative except per hpi. Past Patient History - Infectious Disease Hx of Infectious Diseases: None - Past Medical History & Family History Past Medical History?: Yes Past Family History: Reviewed and not pertinent - Past Social History Smoking Status: Former Smoker Chewing Tobacco Use: No Cigar Use: No Alcohol: Social Drugs: Denies Home Situation {Lives}: With Family Domestic Violence: Negative - CARDIAC Hx Cardia Arrhythmia: Yes Hx Hypercholesterolemia: Yes Hx Hypertension: Yes - PULMONARY Hx Respiratory Disorders: No - NEUROLOGICAL Hx Neurological Disorder: No - HEENT Hx HEENT Problems: No - RENAL Hx Chronic Kidney Disease: No - ENDOCRINE/METABOLIC Hx Diabetes Mellitus Type 2: Yes - HEMATOLOGICAL/ONCOLOGICAL Hx Blood Disorders: No - INTEGUMENTARY Hx Dermatological Problems: No - MUSCULOSKELETAL/RHEUMATOLOGICAL Hx Musculoskeletal Disorders: No Hx Falls: No - GASTROINTESTINAL Hx Gastrointestinal Disorders: No - GENITOURINARY/GYNECOLOGICAL Hx Genitourinary Disorders: No - PSYCHIATRIC Hx Substance Use: No - SURGICAL HISTORY Hx Surgeries: Yes Other/Comment: kidney stone with surgery - ANESTHESIA Hx Anesthesia: Yes Hx Anesthesia Reactions: No Hx Malignant Hyperthermia: No Meds Allergies/Adverse Reactions: Allergies Allergy/AdvReac Type Severity Reaction Status Date / Time No Known Allergies Allergy Verified 09/11/17 06:40 Physical Exam - Constitutional Appears: Non-toxic, No Acute Distress - Head Exam Head Exam: ATRAUMATIC, NORMAL INSPECTION, NORMOCEPHALIC - Eye Exam Eye Exam: EOMI - ENT Exam ENT Exam: Mucous Membranes Moist - Neck Exam Neck exam: Positive for: Full Rom, Normal Inspection - Respiratory Exam Respiratory Exam: Rales. absent: Respiratory Distress - Cardiovascular Exam Cardiovascular Exam: REGULAR RHYTHM, +S1, +S2 - GI/Abdominal Exam GI & Abdominal Exam: Normal Bowel Sounds, Soft. absent: Tenderness - Extremities Exam Extremities exam: Positive for: full ROM, normal inspection - Back Exam Back exam: NORMAL INSPECTION - Neurological Exam Neurological exam: Alert, Oriented x3 - Psychiatric Exam Psychiatric exam: Normal Affect, Normal Mood - Skin Skin Exam: Dry, Intact, Normal Color, Warm Results - Vital Signs Recent Vital Signs: Last Vital Signs Temp 98.2 F 09/11/17 06:41 Pulse 75 09/11/17 09:10 Resp 18 09/11/17 09:10 BP 151/77 H 09/11/17 11:28 Pulse Ox 99 09/11/17 09:10 - Labs Result Diagrams: 09/11/17 06:59 09/11/17 06:59 Labs: Laboratory Results - last 24 hr 09/11/17 09/11/17 09/11/17 06:59 06:59 06:59 WBC 6.9 RBC 5.77 Hgb 14.1 Hct 42.5 MCV 73.7 L MCH 24.4 L MCHC 33.1 RDW 15.5 H Plt Count 290 MPV 7.7 Neut % (Auto) 49.7 L Lymph % (Auto) 27.0 [place] % (Auto) 8.6 Eos % (Auto) 13.9 H Baso % (Auto) 0.8 Neut # (Auto) 3.4 Lymph # (Auto) 1.9 [place] # (Auto) 0.6 Eos # (Auto) 1.0 H Baso # (Auto) 0.1 PT 10.6 INR 1.0 APTT 32 D-Dimer, Quantitative < 200 Sodium 143 Potassium 4.4 Chloride 102 Carbon Dioxide 29 Anion Gap 17 BUN 21 H Creatinine 1.0 Est GFR ( Amer) > 60 Est GFR (Non-Af Amer) > 60 POC Glucose (mg/dL) Random Glucose 170 H Hemoglobin A1c Calcium 9.0 Total Bilirubin 0.5 AST 21 ALT 13 L D Alkaline Phosphatase 78 Troponin I 0.0400 NT-Pro-B Natriuret Pep 657 Total Protein 6.7 Albumin 3.6 Globulin 3.1 Albumin/Globulin Ratio 1.2 Triglycerides 131 Cholesterol 174 LDL Cholesterol Direct 90 HDL Cholesterol 53 09/11/17 09/11/17 10:03 11:49 WBC RBC Hgb Hct MCV MCH MCHC RDW Plt Count MPV Neut % (Auto) Lymph % (Auto) [place] % (Auto) Eos % (Auto) Baso % (Auto) Neut # (Auto) Lymph # (Auto) [place] # (Auto) Eos # (Auto) Baso # (Auto) PT INR APTT D-Dimer, Quantitative Sodium Potassium Chloride Carbon Dioxide Anion Gap BUN Creatinine Est GFR ( Amer) Est GFR (Non-Af Amer) POC Glucose (mg/dL) 130 H Random Glucose Hemoglobin A1c 8.1 H Calcium Total Bilirubin AST ALT Alkaline Phosphatase Troponin I NT-Pro-B Natriuret Pep Total Protein Albumin Globulin Albumin/Globulin Ratio Triglycerides Cholesterol LDL Cholesterol Direct HDL Cholesterol Assessment & Plan - Assessment and Plan (Free Text) Assessment: This is a 67 yo male with past medical hx of CHF, HTN, DM, HLD presenting with 1. CHF exacerbation -CXR pending -trops x 3 -EKGs x 3 -first trop negative -asa 81 mg daily -continue home statin PO HS -lipid panel -I/O -daily weight -possible cardio consult tomorrow -continue metoprolol 50 daily -lasix 40 iv daily -monitor electrolytes -will order echo -also will add duonebs prn -D dimer negative 2. Hx of DM -most recent A1C 8.0 -ISS -accuchecks -hypoglycemia protocol 3. Hx of HTN -continue home losartan daily -continue amlodipine 5 mg PO daily 4. Hx of HLD -continue home pravastatin PO HS -will calculate ASCVD risk status 5. GI/DVT ppx -lovenox 40 daily -protonix daily discussed with Dr. Almanza. <Francine Almanza V - Last Filed: 09/11/17 17:24> Results - Vital Signs Recent Vital Signs: Last Vital Signs Temp 98.3 F 09/11/17 15:15 Pulse 70 09/11/17 15:15 Resp 20 09/11/17 15:15 BP 146/77 09/11/17 15:15 Pulse Ox 99 09/11/17 16:00 - Labs Result Diagrams: 09/11/17 06:59 09/11/17 06:59 Labs: Laboratory Results - last 24 hr 09/11/17 09/11/17 09/11/17 06:59 06:59 06:59 WBC 6.9 RBC 5.77 Hgb 14.1 Hct 42.5 MCV 73.7 L MCH 24.4 L MCHC 33.1 RDW 15.5 H Plt Count 290 MPV 7.7 Neut % (Auto) 49.7 L Lymph % (Auto) 27.0 [place] % (Auto) 8.6 Eos % (Auto) 13.9 H Baso % (Auto) 0.8 Neut # (Auto) 3.4 Lymph # (Auto) 1.9 [place] # (Auto) 0.6 Eos # (Auto) 1.0 H Baso # (Auto) 0.1 PT 10.6 INR 1.0 APTT 32 D-Dimer, Quantitative < 200 Sodium 143 Potassium 4.4 Chloride 102 Carbon Dioxide 29 Anion Gap 17 BUN 21 H Creatinine 1.0 Est GFR ( Amer) > 60 Est GFR (Non-Af Amer) > 60 POC Glucose (mg/dL) Random Glucose 170 H Hemoglobin A1c Calcium 9.0 Total Bilirubin 0.5 AST 21 ALT 13 L D Alkaline Phosphatase 78 Total Creatine Kinase CK-MB (Mass) Troponin I 0.0400 NT-Pro-B Natriuret Pep 657 Total Protein 6.7 Albumin 3.6 Globulin 3.1 Albumin/Globulin Ratio 1.2 Triglycerides 131 Cholesterol 174 LDL Cholesterol Direct 90 HDL Cholesterol 53 09/11/17 09/11/17 09/11/17 10:03 11:49 14:30 WBC RBC Hgb Hct MCV MCH MCHC RDW Plt Count MPV Neut % (Auto) Lymph % (Auto) [place] % (Auto) Eos % (Auto) Baso % (Auto) Neut # (Auto) Lymph # (Auto) [place] # (Auto) Eos # (Auto) Baso # (Auto) PT INR APTT D-Dimer, Quantitative Sodium Potassium Chloride Carbon Dioxide Anion Gap BUN Creatinine Est GFR ( Amer) Est GFR (Non-Af Amer) POC Glucose (mg/dL) 130 H Random Glucose Hemoglobin A1c 8.1 H Calcium Total Bilirubin AST ALT Alkaline Phosphatase Total Creatine Kinase 70 CK-MB (Mass) 1.59 Troponin I 0.0280 NT-Pro-B Natriuret Pep Total Protein Albumin Globulin Albumin/Globulin Ratio Triglycerides Cholesterol LDL Cholesterol Direct HDL Cholesterol Attending/Attestation - Attestation I have personally seen and examined this patient.: Yes I have fully participated in the care of the patient.: Yes I have reviewed all pertinent clinical information: Yes Notes (Text): Patient seen, examined and case discussed with medical supply technician. Patient seen in Champ [facility] 7 in the Emergency Room with daughter at bedside. Patient reporting history of 20 days of shortness of breathe, which would intermittently improve, but worsened today. Patient reports he is a former smoker, 1 pdd X20 years, reports he uses 1 pillow to help him breathe at night. Patient reports he does not use any inhalers or any home oxygen. Patient denies any recent travel. patient's goes to the [facility], sees Dr. Lin, and is taking medications for diabetes, hypertension, lipid disorder. Assessment/Plan 1. Suspected CHF exacerbation Dyspnea * Monitor on telemetry * Chest xray (09/11/17): mild chf suggested. No alveolitis * Cardiac enzymes and ROMIs X3, q6Hour * c/w Aspirin 81mg PO daily * c/w home medication: Toprol XL 50mg PO daily, Losartan 50mg PO daily * Lasix 40mg IV Q12H * Echocardiogram to determine ejection fraction; clarify diastolic and systolic * Daily weight * Intake and out * Pending workup may consider cardiology consult tomorrow * D-dimer: negative 2. History of Diabetes * Check hgba1c * Novolog insulin sliding scale * Accuchecks QAC and HS * Hypoglycemic Protocol 3. History of Hypertension * c/w losartan daily * c/wamlodipine 5 mg PO daily 4. Lipid disorder * continue home pravastatin PO HS-->not available on hospital formulary will convert to Crestor * Lipid panel in the AM 5. Former smoker * 20 year 1ppd history 5. GI/DVT ppx * Lovenox 40mg subq daily * Protonix 40mg IV daily
[2017-09-11] MEDS: Enoxaparin 40 mg Syringe SC SCH (14:55)
[2017-09-11 15:47] LABS: CK-MB 1.59 ng/mL (0.0-3.38); TROPONIN I 0.028 ng/mL (0.00-0.120)
[2017-09-11 16:23] VITALS: RESP 20
[2017-09-11 20:31] LABS: CK-MB 1.38 ng/mL (0.0-3.38); TROPONIN I 0.034 ng/mL (0.00-0.120)
[2017-09-11] MEDS: (Novolog) Insulin Aspart, Recombinant 100 u/ml 10 ml vial SC SCH (21:13)
[2017-09-11] MEDS ORDERED: Rosuvastatin Calcium 2.5 mg Tab PO SCH (22:00)
[2017-09-12 01:36] VITALS: O2SAT 97
[2017-09-12 08:07] LABS: BASO % 0.7 % (0.0-2.0); EOS # 0.9 K/uL (0.0-0.7); EOS % 13.7 % (0.0-4.0); HEMOGLOBIN 14.6 g/dL (12.0-18.0); MEAN CELL VOLUME 73.2 fL (80.0-94.0); MEAN CORPUSCULAR HEMOGLOBIN 24.8 pg (27.0-31.0); MEAN CORPUSCULAR HGB CONC 33.8 g/dL (33.0-37.0); MEAN PLATELET VOLUME 7.9 fL (7.2-11.7); MONO # 0.5 K/uL (0.0-0.8); MONO % 7.1 % (0.0-10.0); NEUT # 3.4 K/uL (1.8-7.0); NEUT % 49.5 % (50.0-75.0); RBC 5.9 Mil/uL (4.40-5.90); RED CELL DISTRIBUTION WIDTH 15.2 % (11.5-14.5); WHITE BLOOD COUNT 6.9 K/uL (4.8-10.8)
[2017-09-12 08:08] VITALS: TEMP 97.6
[2017-09-12 08:46] LABS: ALB/GLOB RATIO 1.2 (1.0-2.1); ALBUMIN 3.6 g/dL (3.5-5.0); ALT/SGPT 16 U/L (21-72); AST/SGOT 20 U/L (17-59); BLOOD UREA NITROGEN 26 mg/dL (9-20); CALCIUM 8.4 mg/dl (8.6-10.4); GFR AFRICAN-AMERICAN > 60; GFR NON-AFRICAN AMERICAN > 60
[2017-09-12] MEDS: (Novolog) Insulin Aspart, Recombinant 100 u/ml 10 ml vial SC SCH ×2 (08:53→12:58)
[2017-09-12] MEDS ORDERED: Potassium Chloride 20 mEq ER Tab PO ONE (09:07)
[2017-09-12] MEDS: Enoxaparin 40 mg Syringe SC SCH (09:39)
[2017-09-12 09:42] VITALS: BP 183/86
--- NOTE | 2017-09-12 12:02 | CARD ---
APPROVED REPORT EXAM: Two-dimensional and M-mode echocardiogram with Doppler and color Doppler. Other Information Quality : GoodRhythm : INDICATION Congestive Heart Failure RISK FACTORS Diabetes 2D DIMENSIONS IVSd1.2 (0.7-1.1cm)LVDd5.8 (3.9-5.9cm) PWd1.3 (0.7-1.1cm)LVDs5.1 (2.5-4.0cm) FS (%) 11.7 %LVEF (%)35.0 (>50%) M-Mode DIMENSIONS Left Atrium (MM)4.98 (2.5-4.0cm)Aortic Root3.19 (2.2-3.7cm) Aortic Cusp Exc.1.80 (1.5-2.0cm) Mitral Valve MV E Lfpbyqaq90.5cm/sMV A Kqdmniug43.5cm/sE/A ratio1.2 TDI E/Lateral E'0.0E/Medial E'0.0 LEFT VENTRICLE The left ventricle is normal size. There is mild concentric left ventricular hypertrophy. The systolic function is moderately impaired. There is global hypokinesis of the left ventricle. Tissue Doppler imaging reveals mild left ventricular diastolic dysfunction. No left ventricle thrombus noted on this study. There is no ventricular septal defect visualized. There is no left ventricular aneurysm. There is no mass noted in the left ventricle. RIGHT VENTRICLE The right ventricle is normal size. There is normal right ventricular wall thickness. The right ventricular systolic function is normal. ATRIA The left atrium is mildly dilated. The right atrium size is normal. The interatrial septum is intact with no evidence for an atrial septal defect. AORTIC VALVE The aortic valve is calcified but opens well. No aortic regurgitation is present. There is no aortic valvular stenosis. There is no aortic valvular vegetation. MITRAL VALVE The mitral valve is normal in structure. There is no mitral valve stenosis. Mitral regurgitation is mild. TRICUSPID VALVE The tricuspid valve is normal in structure. There is no tricuspid valve regurgitation noted. PULMONIC VALVE The pulmonary valve is normal in structure. There is mild pulmonic valvular regurgitation. GREAT VESSELS The aortic root is normal in size. The ascending aorta is normal in size. The pulmonary artery is normal. The IVC is normal in size and collapses >50% with inspiration. PERICARDIAL EFFUSION There is no pericardial effusion. <Conclusion> There is mild concentric left ventricular hypertrophy. The systolic function is moderately impaired. There is global hypokinesis of the left ventricle. Tissue Doppler imaging reveals mild left ventricular diastolic dysfunction. The left atrium is mildly dilated. Mitral regurgitation is mild. There is mild pulmonic valvular regurgitation. LVEF IS 35%.
--- NOTE | 2017-09-12 12:39 | CARD ---
APPROVED REPORT EKG Measurement Heart [id number] <Conclusion> Normal sinus rhythm Nonspecific T wave abnormality Abnormal ECG
--- NOTE | 2017-09-12 12:40 | CARD ---
APPROVED REPORT EKG Measurement Heart [id number] 202P-[id number] <Conclusion> Normal sinus rhythm Nonspecific T wave abnormality Abnormal ECG
--- NOTE | 2017-09-12 12:40 | CARD ---
APPROVED REPORT EKG Measurement Heart [id number] <Conclusion> Normal sinus rhythm Minimal voltage criteria for LVH, may be normal variant Nonspecific T wave abnormality Abnormal ECG
--- NOTE | 2017-09-12 12:50 | CP.PCM.PN ---
Subjective - Date & Time of Evaluation Date of Evaluation: 09/12/17 Time of Evaluation: 07:00 - Subjective Subjective: PGY1 Medicine Note Patient seen and examined at bedside and in no acute distress. Patient says he is feeling much better. Patient says he is no longer short of breath. Patient denies any headache, chest pain, abdominal pain, nausea, vomiting, constipation , or diarrhea. Objective - Vital Signs/Intake and Output Vital Signs (last 24 hours): Temp Pulse Resp BP Pulse Ox 97.6 F 70 20 183/86 H 97 09/12/17 08:05 09/12/17 09:40 09/12/17 08:05 09/12/17 09:40 09/12/17 08:05 Intake and Output: 09/12/17 09/12/17 06:59 18:59 Intake Total 240 Output Total 2 Balance 238 - Medications Medications: Current Medications Albuterol/Ipratropium (Duoneb 3 Mg/0.5 Mg (3 Ml) Ud) 3 ml INH RQ6 PRN PRN Reason: Shortness of Breath Amlodipine Besylate (Norvasc) 5 mg PO DAILY [facility] Last Admin: 09/12/17 09:39 Dose: 5 mg Aspirin (Aspirin Chewable) 81 mg PO DAILY [facility] Last Admin: 09/12/17 09:39 Dose: 81 mg Dextrose (Dextrose 50% Inj) 0 ml IV STAT PRN; Protocol PRN Reason: Hypoglycemia Protocol Dextrose (Glutose 15) 0 gm PO ONCE PRN; Protocol PRN Reason: Hypoglycemia Protocol Enoxaparin Sodium (Lovenox) 40 mg SC DAILY [facility] Last Admin: 09/12/17 09:39 Dose: 40 mg Furosemide (Lasix) 40 mg IVP Q12H [facility] Last Admin: 09/12/17 05:22 Dose: 40 mg Glucagon (Glucagen Diagnostic Kit) 0 mg IM STAT PRN; Protocol PRN Reason: Hypoglycemia Protocol Dextrose (Dextrose 5% In Water 1000 Ml) 1,000 mls @ 0 mls/hr IV .Q0M PRN; Protocol; Per Protocol PRN Reason: Hypoglycemia Protocol Insulin Aspart (Novolog) 0 unit SC ACHS RAVI PRN Reason: Protocol Last Admin: 09/12/17 08:53 Dose: 2 unit Losartan Potassium (Cozaar) 50 mg PO DAILY [facility] Last Admin: 09/12/17 09:39 Dose: 50 mg Metoprolol Succinate (Toprol Xl) 50 mg PO DAILY [facility] Last Admin: 09/12/17 09:39 Dose: 50 mg Pneumococcal Polyvalent Vaccine (Pneumovax 23 Vaccine) 0.5 ml IM .ONCE ONE Stop: 09/13/17 10:01 Rosuvastatin Calcium (Crestor) 2.5 mg PO HS [facility] Last Admin: 09/11/17 21:02 Dose: 2.5 mg - Labs Labs: 09/12/17 07:58 09/12/17 07:58 PT 10.6 SECONDS (9.7-12.2) 09/11/17 06:59 INR 1.0 09/11/17 06:59 APTT 32 SECONDS (21-34) 09/11/17 06:59 - Constitutional Appears: Non-toxic, No Acute Distress - Head Exam Head Exam: ATRAUMATIC, NORMAL INSPECTION, NORMOCEPHALIC - Eye Exam Eye Exam: EOMI, Normal appearance - ENT Exam ENT Exam: Mucous Membranes Moist - Neck Exam Neck Exam: Full ROM - Respiratory Exam Respiratory Exam: Clear to Ausculation Bilateral, NORMAL BREATHING PATTERN. absent: Rales, Rhonchi, Respiratory Distress, Stridor - Cardiovascular Exam Cardiovascular Exam: REGULAR RHYTHM, RRR, +S1, +S2 - GI/Abdominal Exam GI & Abdominal Exam: Soft, Normal Bowel Sounds. absent: Tenderness - Extremities Exam Extremities Exam: Full ROM, Normal Inspection. absent: Pedal Edema - Neurological Exam Neurological Exam: Alert, Awake - Psychiatric Exam Psychiatric exam: Normal Affect, Normal Mood - Skin Skin Exam: Intact, Normal Color, Warm Assessment and Plan - Assessment and Plan (Free Text) Assessment: CHF exacerbation -CXR: mild CHF -trops negative x 3 -I/O -daily weights -monitor electrolytes -D dimer negative -echo: LVEF 35%, mild concentric left ventricular hypertrophy, systolic function is moderately impaired. Meds: -duonebs prn -lasix 40 iv daily -continue Toprol XL 50 daily -ASA 81 mg daily -Crestor 2.5mg po HS Hx of DM -most recent A1C 8.0 -ISS -accuchecks -hypoglycemia protocol Hx of HTN -continue home losartan 50mg po daily daily -continue amlodipine 5 mg PO daily Hx of HLD -Crestor 2.5mg po HS -f/u Lipid panel GI/DVT ppx -lovenox 40mg sc daily -heart healthy diet, mod consistent carbs
[2017-09-12 14:44] VITALS: PULSE 66
--- NOTE | 2017-09-12 15:26 | CP.PCM.DIS ---
<Verónica Layton - Last Filed: 09/12/17 15:13> Provider - Provider Date of Admission: 09/11/17 17:24 Attending physician: Francine Almanza DO Primary care physician: Rachana Lin MD Consults: Dr. Luque (cardio) Time Spent in preparation of Discharge (in minutes): 40 Diagnosis - Discharge Diagnosis (1) CHF exacerbation Status: Acute (2) Diabetes mellitus Status: Chronic (3) HTN (hypertension) Status: Chronic (4) HLD (hyperlipidemia) Status: Chronic Hospital Course - Lab Results Lab Results: Most Recent Lab Values WBC 6.9 K/uL (4.8-10.8) 09/12/17 07:58 RBC 5.90 Mil/uL (4.40-5.90) 09/12/17 07:58 Hgb 14.6 g/dL (12.0-18.0) 09/12/17 07:58 Hct 43.2 % (35.0-51.0) 09/12/17 07:58 MCV 73.2 fL (80.0-94.0) L 09/12/17 07:58 MCH 24.8 pg (27.0-31.0) L 09/12/17 07:58 MCHC 33.8 g/dL (33.0-37.0) 09/12/17 07:58 RDW 15.2 % (11.5-14.5) H 09/12/17 07:58 Plt Count 297 K/uL (130-400) 09/12/17 07:58 MPV 7.9 fL (7.2-11.7) 09/12/17 07:58 Neut % (Auto) 49.5 % (50.0-75.0) L 09/12/17 07:58 Lymph % (Auto) 29.0 % (20.0-40.0) 09/12/17 07:58 [place] % (Auto) 7.1 % (0.0-10.0) 09/12/17 07:58 Eos % (Auto) 13.7 % (0.0-4.0) H 09/12/17 07:58 Baso % (Auto) 0.7 % (0.0-2.0) 09/12/17 07:58 Neut # (Auto) 3.4 K/uL (1.8-7.0) 09/12/17 07:58 Lymph # (Auto) 2.0 K/uL (1.0-4.3) 09/12/17 07:58 [place] # (Auto) 0.5 K/uL (0.0-0.8) 09/12/17 07:58 Eos # (Auto) 0.9 K/uL (0.0-0.7) H 09/12/17 07:58 Baso # (Auto) 0.0 K/uL (0.0-0.2) 09/12/17 07:58 PT 10.6 SECONDS (9.7-12.2) 09/11/17 06:59 INR 1.0 09/11/17 06:59 APTT 32 SECONDS (21-34) 09/11/17 06:59 D-Dimer, Quantitative < 200 ng/mlDDU (0-243) 09/11/17 06:59 Sodium 143 mmol/L (132-148) 09/12/17 07:58 Potassium 3.4 mmol/L (3.6-5.2) L 09/12/17 07:58 Chloride 102 mmol/L (98-107) 09/12/17 07:58 Carbon Dioxide 29 mmol/L (22-30) 09/12/17 07:58 Anion Gap 16 (10-20) 09/12/17 07:58 BUN 26 mg/dL (9-20) H 09/12/17 07:58 Creatinine 1.0 mg/dL (0.8-1.5) 09/12/17 07:58 Est GFR ( Amer) > 60 09/12/17 07:58 Est GFR (Non-Af Amer) > 60 09/12/17 07:58 POC Glucose (mg/dL) 133 mg/dL (65-110) H 09/12/17 12:16 Random Glucose 185 mg/dL (75-110) H 09/12/17 07:58 Hemoglobin A1c 8.1 % (4.2-6.5) H 09/11/17 10:03 Calcium 8.4 mg/dl (8.6-10.4) L 09/12/17 07:58 Phosphorus 3.1 mg/dL (2.5-4.5) 09/12/17 07:58 Magnesium 1.8 mg/dL (1.6-2.3) 09/12/17 07:58 Total Bilirubin 0.6 mg/dL (0.2-1.3) 09/12/17 07:58 AST 20 U/L (17-59) 09/12/17 07:58 ALT 16 U/L (21-72) L D 09/12/17 07:58 Alkaline Phosphatase 81 U/L (38-126) 09/12/17 07:58 Total Creatine Kinase 59 U/L (55-170) 09/11/17 20:00 CK-MB (Mass) 1.38 ng/mL (0.0-3.38) 09/11/17 20:00 Troponin I 0.0340 ng/mL (0.00-0.120) 09/11/17 20:00 NT-Pro-B Natriuret Pep 657 pg/mL (0-900) 09/11/17 06:59 Total Protein 6.6 g/dL (6.3-8.3) 09/12/17 07:58 Albumin 3.6 g/dL (3.5-5.0) 09/12/17 07:58 Globulin 3.1 gm/dL (2.2-3.9) 09/12/17 07:58 Albumin/Globulin Ratio 1.2 (1.0-2.1) 09/12/17 07:58 Triglycerides 131 mg/dL (0-149) 09/11/17 06:59 Cholesterol 174 mg/dL (0-199) 09/11/17 06:59 LDL Cholesterol Direct 90 mg/dL (0-129) 09/11/17 06:59 HDL Cholesterol 53 mg/dL (30-70) 09/11/17 06:59 - Hospital Course Hospital Course: HPI "This is a 67 yo male with past medical history of CHF, DM, HTN, HLD, presenting to ER with chief complaint of shortness of breath. Pt does not speak any lao and is a poor historian. He is with his daughter who is able to provide some translation. Pt reports sob x 30 days, but says it started worsening over the past 1 night. Patient says it has never happened before although records indicate he was admitted for similar issue last year. Pt denies chest pain, palpitations, dizziness. Pt says the sob does not happen during exertion. It is only affecting him at rest. He takes several medications and is compliant with all of them. Pt denies cough, fevers, chills, vomiting, diarrhea. He does not use any pumps or inhalers." Patient admitted for a CHF exacerbation. Patient was treated with duonebs and Lasix. Patient's intake and output was monitored and daily weights taken. Patient had a negative D dimer. Echo was done which showed LVEF 35%, mild concentric left ventricular hypertrophy, systolic function is moderately impaired. Upon discharge, patient's shortness of breath significantly improved. For patient's DMII, HGA1C was 8.0. Patient placed on insulin sliding scale with accuchecks and hypoglycemia protocol. For patient's hypertension patient was treated with Norvasc, Cozaar, Toprol XL. For patient's hyperlipidemia, patient was given Crestor. For prophylaxis patient was given Lovenox 40mg sc daily. Cardiology, Dr. Luque, was consulted who said patient was stable for discharge. This is a summary of the patient's hospital course, please see chart for full details. Discharge Exam - Additional Findings Additional findings: - Constitutional Appears: Non-toxic, No Acute Distress - Head Exam Head Exam: ATRAUMATIC, NORMAL INSPECTION, NORMOCEPHALIC - Eye Exam Eye Exam: EOMI, Normal appearance - ENT Exam ENT Exam: Mucous Membranes Moist - Neck Exam Neck Exam: Full ROM - Respiratory Exam Respiratory Exam: Clear to Ausculation Bilateral, NORMAL BREATHING PATTERN. absent: Rales, Rhonchi, Respiratory Distress, Stridor - Cardiovascular Exam Cardiovascular Exam: REGULAR RHYTHM, RRR, +S1, +S2 - GI/Abdominal Exam GI & Abdominal Exam: Soft, Normal Bowel Sounds. absent: Tenderness - Extremities Exam Extremities Exam: Full ROM, Normal Inspection. absent: Pedal Edema - Neurological Exam Neurological Exam: Alert, Awake - Psychiatric Exam Psychiatric exam: Normal Affect, Normal Mood - Skin Skin Exam: Intact, Normal Color, Warm Discharge Plan - Discharge Medications Prescriptions: Aspirin [Aspirin Chewable] 81 mg PO DAILY #30 chew Furosemide [Lasix] 40 mg PO DAILY #30 tablet Glimepiride [amaRYL] 4 mg PO DAILY #30 tab Losartan [Cozaar] 100 mg PO DAILY #30 tab Metformin HCl [Metformin HCl ER] 1,000 mg PO BID #60 tab.er.24 Metoprolol Succinate [Toprol XL] 50 mg PO DAILY #30 tab Pravastatin Sodium [Pravachol] 20 mg PO DAILY #30 tab - Follow Up Plan Condition: FAIR Disposition: HOME/ ROUTINE Instructions: Heart Healthy Diet, Heart Failure, Adult (DC), Carbohydrate Counting Diet, Diabetes Diet , Aspirin, Furosemide, Glimepiride, Losartan, Metformin, Metoprolol, Pravastatin Additional Instructions: Patient stable for discharge as per Dr. Person. Patient should follow up with primary doctor within 1 week of discharge. Patient should take the following medications as described: ASA 81 mg in the morning (7am) Metoprolol XL 50mg in the morning (7am) Metformin 1000mg twice a day (7am and 7pm) Lasix 40mg daily (at lunchtime, 1 pm) Glimepiride 4mg daily (at lunchtime, 1pm) Cozaar 100mg at night (7pm) Pravastatin 20mg at bedtime Patient to eat a banana daily Patient to STOP taking Norvasc and Lisinopril. Patient to return to ED if symptoms return. Patient explained instructions who understands and agrees. Referrals: Rachana Lin MD [Primary Care Provider] - <José Miguel Person - Last Filed: 09/12/17 20:20> Provider - Provider Date of Admission: 09/11/17 17:24 Attending physician: Francine Almanza DO Primary care physician: Rachana Lin MD Hospital Course - Lab Results Lab Results: Most Recent Lab Values WBC 6.9 K/uL (4.8-10.8) 09/12/17 07:58 RBC 5.90 Mil/uL (4.40-5.90) 09/12/17 07:58 Hgb 14.6 g/dL (12.0-18.0) 09/12/17 07:58 Hct 43.2 % (35.0-51.0) 09/12/17 07:58 MCV 73.2 fL (80.0-94.0) L 09/12/17 07:58 MCH 24.8 pg (27.0-31.0) L 09/12/17 07:58 MCHC 33.8 g/dL (33.0-37.0) 09/12/17 07:58 RDW 15.2 % (11.5-14.5) H 09/12/17 07:58 Plt Count 297 K/uL (130-400) 09/12/17 07:58 MPV 7.9 fL (7.2-11.7) 09/12/17 07:58 Neut % (Auto) 49.5 % (50.0-75.0) L 09/12/17 07:58 Lymph % (Auto) 29.0 % (20.0-40.0) 09/12/17 07:58 [place] % (Auto) 7.1 % (0.0-10.0) 09/12/17 07:58 Eos % (Auto) 13.7 % (0.0-4.0) H 09/12/17 07:58 Baso % (Auto) 0.7 % (0.0-2.0) 09/12/17 07:58 Neut # (Auto) 3.4 K/uL (1.8-7.0) 09/12/17 07:58 Lymph # (Auto) 2.0 K/uL (1.0-4.3) 09/12/17 07:58 [place] # (Auto) 0.5 K/uL (0.0-0.8) 09/12/17 07:58 Eos # (Auto) 0.9 K/uL (0.0-0.7) H 09/12/17 07:58 Baso # (Auto) 0.0 K/uL (0.0-0.2) 09/12/17 07:58 PT 10.6 SECONDS (9.7-12.2) 09/11/17 06:59 INR 1.0 09/11/17 06:59 APTT 32 SECONDS (21-34) 09/11/17 06:59 D-Dimer, Quantitative < 200 ng/mlDDU (0-243) 09/11/17 06:59 Sodium 143 mmol/L (132-148) 09/12/17 07:58 Potassium 3.4 mmol/L (3.6-5.2) L 09/12/17 07:58 Chloride 102 mmol/L (98-107) 09/12/17 07:58 Carbon Dioxide 29 mmol/L (22-30) 09/12/17 07:58 Anion Gap 16 (10-20) 09/12/17 07:58 BUN 26 mg/dL (9-20) H 09/12/17 07:58 Creatinine 1.0 mg/dL (0.8-1.5) 09/12/17 07:58 Est GFR ( Amer) > 60 09/12/17 07:58 Est GFR (Non-Af Amer) > 60 09/12/17 07:58 POC Glucose (mg/dL) 133 mg/dL (65-110) H 09/12/17 12:16 Random Glucose 185 mg/dL (75-110) H 09/12/17 07:58 Hemoglobin A1c 8.1 % (4.2-6.5) H 09/11/17 10:03 Calcium 8.4 mg/dl (8.6-10.4) L 09/12/17 07:58 Phosphorus 3.1 mg/dL (2.5-4.5) 09/12/17 07:58 Magnesium 1.8 mg/dL (1.6-2.3) 09/12/17 07:58 Total Bilirubin 0.6 mg/dL (0.2-1.3) 09/12/17 07:58 AST 20 U/L (17-59) 09/12/17 07:58 ALT 16 U/L (21-72) L D 09/12/17 07:58 Alkaline Phosphatase 81 U/L (38-126) 09/12/17 07:58 Total Creatine Kinase 59 U/L (55-170) 09/11/17 20:00 CK-MB (Mass) 1.38 ng/mL (0.0-3.38) 09/11/17 20:00 Troponin I 0.0340 ng/mL (0.00-0.120) 09/11/17 20:00 NT-Pro-B Natriuret Pep 657 pg/mL (0-900) 09/11/17 06:59 Total Protein 6.6 g/dL (6.3-8.3) 09/12/17 07:58 Albumin 3.6 g/dL (3.5-5.0) 09/12/17 07:58 Globulin 3.1 gm/dL (2.2-3.9) 09/12/17 07:58 Albumin/Globulin Ratio 1.2 (1.0-2.1) 09/12/17 07:58 Triglycerides 131 mg/dL (0-149) 09/11/17 06:59 Cholesterol 174 mg/dL (0-199) 09/11/17 06:59 LDL Cholesterol Direct 90 mg/dL (0-129) 09/11/17 06:59 HDL Cholesterol 53 mg/dL (30-70) 09/11/17 06:59 Attending/Attestation - Attestation I have personally seen and examined this patient.: Yes I have fully participated in the care of the patient.: Yes I have reviewed all pertinent clinical information, including history, physical exam and plan: Yes Notes (Text): 09/12/17 20:14 Patient was seen and examined at 11:30 AM Exam, assessment and plan and discharge instructions were gone over with the resident. Patient is no longer short of breath and he walked full length of the medical floor without reprodcution of his presenting symptoms. His exam was completely unremarkable. Echocardiogram discussed with [facility] Dr. Yassine Luque and he has been cleared for discharge. Please note that the patient was discharged on the following medications: ASA 81 mg PO 1x/day (7 AM) Lasix 40 mg PO 1x/day ( 1 PM) Metoprolol XL 50 mg PO 1x/day (7 AM) Cozaar 100 mg PO 1x/day (7 PM): this was increased from 50 mg as the Norvasc was discontinued due to EF on Echo < 40% Pravastatin 20 mg PO HS (bedtime) Metformin 1,000 mg PO 2x/day (breakfast and dinner) Glimepiride 4 mg PO 1x/day (lunch) He will eat 1 bannana a day José Miguel Person D.O.
--- NOTE | 2017-09-13 07:55 | PCM.HF ---
Heart Failure Core Measure - Heart Failure Ejection Fraction: Less Than 40 % Left Ventricular Function to be assessed after discharge: Yes KRYSTYNA Inhibitor Prescribed: No Contraindication/Reason for not providing: ARB prescribed Beta-Jelena Prescribed: Metoprolol Succinate AnticoagulationTherapy for Atrial Fibrillation/Atrialflutter: Yes Hydralazine Nitrate Prescribed: No Contraindication/Reason for not providing: not indicated Contraindication/Reason for not providing: not indicated Cardiac Resynchronization Therapy Prescribed: No Contraindication/Reason for not providing: not indicated - Follow up Will be discharged to: Home Follow Up Date (must be within 7 days from discharge): 09/19/17 Follow Up Time: 09:00
--- NOTE | 2017-09-13 08:03 | CON ---
DATE: 09/12/2017 CARDIOLOGY CONSULT Requested by the hospital group. LOCATION: Room 664, bed A. HISTORY OF PRESENT ILLNESS: I was requested to see this 67 years old male with a long history of hypertension, diabetes and presumably few episodes of heart failure in the past, admitted via the emergency room last night with increasing shortness of breath for the last several days or weeks. I just came to see him this morning and he told that he is fine, he is walking around, I made him walk all over the corridors here in the hallways, I even brought Dr. José Miguel Person the attending now the hospitalist and the patient feels totally well and he wants to get out of here. He denies any shortness of breath. No dizziness. No chest pain. No lower extremities in essence right now "he feel great, he wants to go home." PAST MEDICAL HISTORY: As mentioned includes hypertension, diabetes and multiple medications including KRYSTYNA inhibitors, diuretics etc. SOCIAL HISTORY: He denies smoking or any excessive alcohol use. ALLERGIES: NO KNOWN ALLERGIES TO ANY MEDICATIONS. REVIEW OF SYSTEMS: Other than the above mentioned from the cardiopulmonary view point, rest is grossly unremarkable. PHYSICAL EXAMINATION: GENERAL: Reveals an elderly male, appears in no distress, walking around, feeling just "fine." VITAL SIGNS: At this point in time, includes blood pressure about 150/85, pulse regular via telemetry and sinus room air 97% unremarkable. SKIN: Warm and dry. No cyanosis or edema. HEAD, EARS, NOSE AND THROAT: Basically unremarkable for this age. CHEST: Showing symmetrical expansion and auscultation of the chest reveals no localized crepitation. CARDIOLOGIC: PMI appears slightly displaced down and out. No thrills. Auscultation reveals heart sounds normal in intensity and regular with a minimal systolic ejection murmur on the left sternal border. ABDOMEN: Shows no localized tenderness, it is actually soft. CLAM SORTER: Alert and oriented, no focal deficits. EXTREMITIES: Lower extremities, no edema. COMPLEMENTARY DATA: Basically within acceptable range for the situation. Potassium border line low; however, this is being looked and would be replaced. From the cardiological view point, electrocardiogram is showing sinus rhythm on LVH. An echocardiogram which was done this morning, I just took a look and basically showing dilatated left ventricular size with concentric hypertrophy and moderate left ventricular systolic dysfunction and with moderate diastolic dysfunction, mild mitral regurgitation, calcific aortic valve without any stenosis, . CONCLUSION: Gentleman with hypertensive heart disease, probably mildly decompensation. The case was discussed with Dr. José Miguel Person and at this point in time, the proven thing to do is to discharge him home to optimize medical therapy with the use of KRYSTYNA inhibitor, diuretics, perhaps spironolactone added along with the small amount of beta blockers and to be followed by his own physician in the area and if not possible to send him to [facility] for followup. Yassine Luque MD
[2017-09-13] MEDS ORDERED: Pneumococcal 23-Valent Vaccine IM ONE (10:00)
== END 2017-09-12 16:46 | disposition home or self-care (01) | DRG 127 ==
LOC: SUPCPDRO 06:28 → C.ER 06:28 → C.9E 08:29 → C.6T 08:58 → OBSVTOIN 17:24
PROVIDERS: ADMIT Hospitalist; ATTEND Hospitalist
DX: I11.0 Hypertensive heart disease with heart failure (principal); I50.9 Heart failure, unspecified; Z79.84 Long term (current) use of oral hypoglycemic drugs; E78.5 Hyperlipidemia, unspecified; E11.9 Type 2 diabetes mellitus without complications; Z87.891 Personal history of nicotine dependence

== ENCOUNTER 2017-11-03 12:34 | Emergency (ER) | payer MEDICAID ==
[2017-11-03 12:34] VITALS: BMI 32.1
[2017-11-03 12:51] VITALS: BP 142/66; PULSE 66; RESP 16; TEMP 97.9; O2SAT 98
--- NOTE | 2017-11-03 13:46 | C.PDOC ---
History Of Present Illness 67 yo male comes to ER with complaints of fullness sensation to his right ear and decreased ability to hear in both his ears "for a while." He reports the sensation was worse last night, prompting his visit. Otherwise, patient denies any ear injury, ear pain, discharge, fever, chills. He has no other complaints. Time Seen by Provider: 11/03/17 12:52 Chief Complaint (Nursing): ENT Problem History Per: Patient History/Exam Limitations: None Onset/Duration Of Symptoms: Days Current Symptoms Are (Timing): Still Present Quality (Ear): denies: Pain W/Touch, Redness, Swelling, Discharge, Foreign Body Quality (Mouth/Throat): denies: Tenderness, Swelling, Redness, Drainage Symptoms Have Been: Continuous Severity: Mild Past Medical History Reviewed: Historical Data, Nursing Documentation, Vital Signs Vital Signs: Last Vital Signs Temp 97.9 F 11/03/17 12:49 Pulse 66 11/03/17 12:49 Resp 16 11/03/17 12:49 BP 142/66 11/03/17 12:49 Pulse Ox 98 11/03/17 15:51 - Medical History PMH: Cardia Arrhythmia, Diabetes, HTN, Hypercholesterolemia Surgical History: No Surg Hx Family History: States: No Known Family Hx - Social History Hx Tobacco Use: No Hx Alcohol Use: Yes (social) Hx Substance Use: No - Immunization History Hx Tetanus Toxoid Vaccination: No Hx Influenza Vaccination: Yes Hx Pneumococcal Vaccination: (not sure) Review Of Systems Constitutional: Negative for: Fever, Chills ENT: Positive for: Other (ear fullness, decreased hearing ). Negative for: Ear Pain, Ear Discharge, Throat Pain Respiratory: Negative for: Cough Physical Exam - Physical Exam Appears: Well, Non-toxic, No Acute Distress Skin: Warm, Dry, No Rash Head: Normacephalic Eye(s): bilateral: Normal Inspection Ear(s): Bilateral: Normal (cerumen in ear canal; no TM erythema, bulging, no discharge ), Other (no mastoid tenderness) Oral Mucosa: Moist Throat: Normal, No Erythema, No Exudate Neck: Supple Cardiovascular: Rhythm Regular Respiratory: Normal Breath Sounds, No Rales, No Rhonchi, No Wheezing Neurological/Psych: Oriented x3 ED Course And Treatment O2 Sat by Pulse Oximetry: 98 (RA) Pulse Ox Interpretation: Normal Progress Note: Patient given Rx for Debrox drops, and was instructed to follow up with ENT within 1 week. He understands he should return to ED if symptoms worsen. Disposition Counseled Patient/Family Regarding: Diagnosis, Need For Followup, Rx Given - Disposition Referrals: Rachana Lin MD [Medical Doctor] - Oli Brito MD [Staff Provider] - Disposition: HOME/ ROUTINE Disposition Time: 13:45 Condition: STABLE Additional Instructions: FOLLOW UP WITH EAR NOSE THROAT SPECIALIST WITHIN 1 WEEK USE MEDICATIONS TWICE DAILY FOR MAXIMUM OF 4 DAYS RETURN TO EMERGENCY ROOM IF SYMPTOMS WORSEN SEGUIMIENTO CON ESPECIALISTA DE [place] DE ODO DENTRO DE 1 SEMANA USE MEDICAMENTOS DOS VECES DIARIAMENTE POR UN MXIMO DE 4 STAPLETON REGRESE AL LOTUS DE EMERGENCIA SI LOS SNTOMAS EMPEORAN Prescriptions: Carbamide Peroxide [Debrox 15 Ml] 10 drop OT BID #1 bottle Forms: [employer] (Telugu) Print Language: BELARUSIAN - Clinical Impression Clinical Impression: Excessive cerumen in both ear canals - Scribe Statement The provider has reviewed the documentation as recorded by the Scribe (Yenifer Jean) Provider Attestation: All medical record entries made by the Scribe were at my direction and personally dictated by me. I have reviewed the chart and agree that the record accurately reflects my personal performance of the history, physical exam, medical decision making, and the department course for this patient. I have also personally directed, reviewed, and agree with the discharge instructions and disposition.
== END 2017-11-03 13:54 | disposition home or self-care (01) ==
LOC: C.ER 12:34
DX: H61.23 Impacted cerumen, bilateral (principal)

== ENCOUNTER 2017-11-19 23:05 | Emergency (ER) | payer MEDICAID ==
[2017-11-19 23:05] VITALS: BMI 32.1
[2017-11-19 23:13] VITALS: TEMP 97.4
--- NOTE | 2017-11-19 23:26 | C.PDOC ---
History Of Present Illness The patient presents to the ED for evaluation after he noted his blood pressure to be high today. Patient states he does not feel well. He denies chest pain, palpitations, slurred speech, and vision change. Time Seen by Provider: 11/19/17 23:25 Chief Complaint (Nursing): High Blood Pressure History Per: Patient History/Exam Limitations: no limitations Onset/Duration Of Symptoms: Hrs Current Symptoms Are (Timing): Still Present Associated Symptoms: denies: Chest Pain, Blurred Vision Severity: None Pain Scale Rating Of: 0 Exacerbating Factor(s): Pos: None Recent travel outside of the [place]: No Additional History Per: Patient, Family Past Medical History Reviewed: Historical Data, Nursing Documentation, Vital Signs Vital Signs: Last Vital Signs Temp 97.4 F L 11/19/17 23:11 Pulse 67 11/20/17 00:06 Resp 20 11/20/17 00:06 BP 161/74 H 11/20/17 00:06 Pulse Ox 100 11/20/17 00:49 - Medical History PMH: Cardia Arrhythmia, Diabetes, HTN, Hypercholesterolemia Denies: Chronic Kidney Disease Surgical History: No Surg Hx Family History: States: No Known Family Hx - Social History Hx Tobacco Use: No Hx Alcohol Use: Yes (social) Hx Substance Use: No - Immunization History Hx Tetanus Toxoid Vaccination: No Hx Influenza Vaccination: Yes Hx Pneumococcal Vaccination: No Review Of Systems Constitutional: Negative for: Fever, Chills Eyes: Negative for: Vision Change Cardiovascular: Positive for: Other (elevated blood pressure ). Negative for: Chest Pain, Palpitations Respiratory: Negative for: Cough, Shortness of Breath Gastrointestinal: Negative for: Nausea, Vomiting, Abdominal Pain Musculoskeletal: Negative for: Arm Pain Skin: Negative for: Rash, Lesions, Jaundice, Bruising Neurological: Negative for: Weakness, Numbness, Change in Speech Psych: Negative for: Anxiety Physical Exam - Physical Exam Appears: Non-toxic, No Acute Distress Skin: Warm, Dry Head: Normacephalic Eye(s): bilateral: Normal Inspection Oral Mucosa: Moist Neck: Supple Chest: Symmetrical, No Deformity, No Tenderness Cardiovascular: Rhythm Regular, No Murmur Respiratory: No Rales, No Rhonchi, No Wheezing Gastrointestinal/Abdominal: Soft, No Tenderness, No Guarding, No Rebound Back: Normal Inspection Extremity: Normal ROM, Capillary Refill (less than 2 seconds ) Extremity: Bilateral: Atraumatic Neurological/Psych: Oriented x3, Normal Speech, Normal Cognition Gait: Steady ED Course And Treatment - Laboratory Results Result Diagrams: 11/19/17 23:59 11/19/17 23:59 ECG: Interpreted By Me, Viewed By Me ECG Rhythm: Sinus Rhythm (66), Nonspecific Changes O2 Sat by Pulse Oximetry: 100 (on RA) Pulse Ox Interpretation: Normal - CT Scan/US CT Head Other Rad Studies (CT/US): Read By Radiologist, Radiology Report Reviewed CT/US Interpretation: EXAM: CT Head Without Intravenous Contrast. CLINICAL HISTORY: 67 years, male; Injury or trauma; Injury R/O bleed; Initial encounter ; Bleeding / hemorrhage. TECHNIQUE: Axial computed tomography images of the head/brain without intravenous contrast. All CT scans at. this facility use at least one of these dose optimization techniques: automated exposure control; mA. and/or kV adjustment per patient size (includes targeted exams where dose is matched to clinical. indication); or iterative reconstruction. COMPARISON: No relevant prior studies available. 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 Age-related atrophy and. chronic small vessel ischemic disease. No hemorrhage. Ventricles : Unremarkable. No ventriculomegaly. Bones/joints: Prior right frontal craniectomy. No acute fracture. Soft tissues: Unremarkable. Sinuses: Near- complete opacification of the anterior right ethmoid air cells extending into the. inferior right frontal sinus. Minimal mucosal thickening left anterior ethmoid air cells. Mastoid air cells: Unremarkable as visualized. No mastoid effusion. IMPRESSION: 1. No acute intracranial findings. 2. Prior right frontal craniectomy with chronic encephalomalacia right frontal lobe likely from prior. surgery. 3. Additional chronic/incidental findings as described above. Progress Note: Bloodwork, urinalysis, EKG, CT Head, and CXR ordered. On re- assessment, patient is resting comfortably and showing no signs of distress. Patient's blood pressure has improved and he reports an improvement in his symptoms. Reevaluation Time: 00:49 Reassessment Condition: Improved Medical Decision Making Medical Decision Making: Upon provider reevaluation patient is feeling better, is medically stable, and requires no further treatment in the ED at this time. Patient will be discharged home . Counseling was provided and all questions were answered regarding diagnosis and need for follow up with Dr Lin. There is agreement to discharge plan. Return if symptoms persist or worsen. Disposition Counseled Patient/Family Regarding: Studies Performed, Diagnosis, Need For Followup - Disposition Referrals: Rachana Lin MD [Medical Doctor] - Disposition: HOME/ ROUTINE Disposition Time: 23:25 Condition: FAIR Additional Instructions: Please return if symptoms recur Instructions: High Blood Pressure (DC) Forms: [employer] (Djiboutian) Print Language: MONGOLIAN - Clinical Impression Clinical Impression: HTN (hypertension) - Scribe Statement The provider has reviewed the documentation as recorded by the Scribe (Ana Person) Provider Attestation: All medical record entries made by the Scribe were at my direction and personally dictated by me. I have reviewed the chart and agree that the record accurately reflects my personal performance of the history, physical exam, medical decision making, and the department course for this patient. I have also personally directed, reviewed, and agree with the discharge instructions and disposition.
[2017-11-20 00:06] LABS: BASO # 0.1 K/uL (0.0-0.2); BASO % 0.9 % (0.0-2.0); EOS % 11.2 % (0.0-4.0); HEMOGLOBIN 13.1 g/dL (12.0-18.0); LYMPH # 1.9 K/uL (1.0-4.3); LYMPH % 22.3 % (20.0-40.0); MEAN CELL VOLUME 73.8 fL (80.0-94.0); MEAN CORPUSCULAR HEMOGLOBIN 24.5 pg (27.0-31.0); MEAN CORPUSCULAR HGB CONC 33.2 g/dL (33.0-37.0); MEAN PLATELET VOLUME 7.3 fL (7.2-11.7); MONO # 0.6 K/uL (0.0-0.8); MONO % 7.3 % (0.0-10.0); NEUT % 58.3 % (50.0-75.0); RBC 5.36 Mil/uL (4.40-5.90); RED CELL DISTRIBUTION WIDTH 16.3 % (11.5-14.5); WHITE BLOOD COUNT 8.6 K/uL (4.8-10.8)
[2017-11-20 00:14] LABS: PROTHROMBIN TIME 10.8 SECONDS (9.7-12.2)
[2017-11-20 00:16] LABS: SQUAMOUS EPITHIAL < 1 /hpf (0-5); URINE BACTERIA RARE (<OCC); URINE BILIRUBIN NEGATIVE (NEGATIVE); URINE BLOOD NEGATIVE (NEGATIVE); URINE CLARITY Clear (Clear); URINE COLOR Straw (YELLOW); URINE GLUCOSE (UA) NORMAL (Normal); URINE HYALINE CAST 0-2 /lpf (0-2); URINE LEUKOCYTE ESTERASE NEG Leu/uL (Negative); URINE PROTEIN 1+ mg/dL (NEGATIVE); URINE UROBILINOGEN NORMAL mg/dL (0.2-1.0)
[2017-11-20 00:20] LABS: ALB/GLOB RATIO 1.6 (1.0-2.1); ALBUMIN 4.2 g/dL (3.5-5.0); ALT/SGPT 30 U/L (21-72); AST/SGOT 20 U/L (17-59); BLOOD UREA NITROGEN 27 mg/dL (9-20); CALCIUM 9.6 mg/dl (8.6-10.4); GFR AFRICAN-AMERICAN > 60; GFR NON-AFRICAN AMERICAN > 60
[2017-11-20 01:00] VITALS: BP 159/74; PULSE 70; RESP 18; O2SAT 97
--- NOTE | 2017-11-20 09:40 | RAD ---
Date of service: 11/19/2017 PROCEDURE: CHEST RADIOGRAPH, 1 VIEW HISTORY: SOB COMPARISON: None available. FINDINGS: LUNGS: Resolution of prior interstitial pulmonary changes. No acute airspace disease appreciated bilaterally. PLEURA: No pneumothorax or pleural fluid seen. CARDIOVASCULAR: Stable cardiomegaly. No pulmonary vascular congestion reflecting resolution of prior CHF pattern. OSSEOUS STRUCTURES: No significant abnormalities. VISUALIZED UPPER ABDOMEN: Normal. OTHER FINDINGS: None. IMPRESSION: Resolution of prior CHF pattern. Cardiomegaly appears stable. No acute airspace disease.
--- NOTE | 2017-11-20 12:50 | CT ---
Date of service: 11/19/2017 PROCEDURE: CT HEAD WITHOUT CONTRAST. HISTORY: R/O Bleed COMPARISON: None available. TECHNIQUE: Axial computed tomography images were obtained through the head/brain without intravenous contrast. Radiation dose: Total exam DLP = 847.24 mGy-cm. This CT exam was performed using one or more of the following dose reduction techniques: Automated exposure control, adjustment of the mA and/or kV according to patient size, and/or use of iterative reconstruction technique. FINDINGS: HEMORRHAGE: No intracranial hemorrhage. BRAIN: Pain status post right frontal craniotomy with postoperative cystic encephalomalacia identified at right frontal lobe. There is no positive mass effect throughout the brain. Midline brain anatomy is unremarkable as well as the posterior fossa contents. Good corticomedullary differentiation is seen. Proportional but limited Proportional, diffuse expansion of the ventriculosulcal and cisternal spaces is appreciated with white matter lucency compatible with diffuse cerebral atrophy and chronic microangiopathy. No suspicious extra-axial fluid collection is identified and the midline brain anatomy appears grossly nonfocal as imaged. There is no mass effect throughout. VENTRICLES: Unremarkable. No hydrocephalus. CALVARIUM: Prior right frontal craniotomy as discussed above. No displaced fracture appreciated. Cavernous internal carotid artery atherosclerotic changes minimally apparent bilateral. PARANASAL SINUSES: Unremarkable as visualized. No significant inflammatory changes. MASTOID AIR CELLS: Unremarkable as visualized. No inflammatory changes. OTHER FINDINGS: None. IMPRESSION: No definite acute intracranial findings by standard CT criteria. Mild age related neuro degenerative change are identified as well as postoperative cystic encephalomalacia in the small sublobar segment of the right frontal lobe medially with prior right frontal craniotomy apparent. Follow-up CT or MRI are available as clinically warranted. Concordant preliminary report from [facility], 11/20/2017.
--- NOTE | 2017-11-22 15:08 | CARD ---
APPROVED REPORT Date of service: 11/20/2017 EKG Measurement Heart [id number] <Conclusion> Normal sinus rhythm Minimal voltage criteria for LVH, may be normal variant Nonspecific T wave abnormality Abnormal ECG
== END 2017-11-20 01:00 | disposition home or self-care (01) ==
LOC: C.ER 23:05
DX: I10 Essential (primary) hypertension (principal); E78.00 Pure hypercholesterolemia, unspecified; E11.9 Type 2 diabetes mellitus without complications; Z87.891 Personal history of nicotine dependence